=== PATIENT | female | born 1935 | race Caucasian/White ===

== ENCOUNTER 2016-08-31 12:08 | Emergency (ER) | payer MEDICARE, OTHER ==
--- NOTE | 2016-08-31 12:53 | ER Document Report ---
ED Fall - General Chief Complaint: Fall Injury Stated Complaint: FALL;HIP PAIN Information source: Emergency Med Personnel Notes: This is a 81-year-old female that presents today with a fall. She is from [facility] ([facility]. History is unobtainable due to underlying dementia. She is at her baseline. History obtained from patient's daughter. She states that nursing staff at the home called her at 1115 this morning and stated that patient was walking down the [address] and suddenly fell. She landed on her left hip. There was no loss of consciousness. TRAVEL OUTSIDE OF THE [place] IN LAST 30 DAYS: No - Related data Allergies/Adverse Reactions: codeine [Codeine] Allergy (Verified 01/25/15 03:16) diazepam [From Valium] Allergy (Verified 01/25/15 03:16) hydrocodone [Hydrocodone] Allergy (Verified 01/25/15 03:16) hydromorphone HCl [From Dilaudid] Allergy (Verified 01/25/15 03:16) meperidine HCl [From Demerol] Allergy (Verified 01/25/15 03:16) morphine [Morphine] Allergy (Verified 01/25/15 03:16) oxycodone [Oxycodone] Allergy (Verified 01/25/15 03:16) Penicillins Allergy (Verified 01/25/15 03:16) promethazine HCl [From Phenergan] Allergy (Verified 01/25/15 03:16) Sulfa (Sulfonamide Antibiotics) Allergy (Verified 01/25/15 03:16) Past Medical History - General Information source: Patient, Emergency Med Personnel - Social History Smoking Status: Never Smoker Chew tobacco use (# tins/day): No Frequency of alcohol use: None Drug Abuse: None Family History: Reviewed & Not Pertinent Patient has suicidal ideation: No Patient has homicidal ideation: No - Past Medical History Cardiac Medical History: Reports: Hx Hypertension Pulmonary Medical History: Reports: Hx COPD Endocrine Medical History: Reports: Hx Diabetes Mellitus Type 2 GI Medical History: Reports: Hx Gastroesophageal Reflux Disease Psychiatric Medical History: 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 Past Surgical History: Reports: Hx Section - Immunizations Hx Diphtheria, Pertussis, Tetanus Vaccination: Yes Review of Systems - Review of Systems Notes: Review of systems unobtainable from underlying dementia. She is at baseline. Physical Exam - Vital signs Vitals: Temp Pulse Resp BP Pulse Ox 98.0 F 52 L 13 100/60 96 08/31/16 12:32 08/31/16 12:32 08/31/16 12:32 08/31/16 12:32 08/31/16 12:32 - Respiratory Respiratory status: No respiratory distress Breath sounds: Normal - Cardiovascular Rhythm: Regular Heart sounds: Normal auscultation - Abdominal Inspection: Normal Distension: No distension Bowel sounds: Normal Organomegaly: No organomegaly - Extremities General upper extremity: Normal inspection General lower extremity: Normal inspection - Skin Skin Temperature: Warm Skin Moisture: Dry Skin Color: Normal Irregularity with: negative: Swelling - No obvious deformities or swelling. Course - Re-evaluation Re-evalutation: 08/31/16 15:25 Patient's daughter at bedside stated that she will often fake injuries in order to get pain medicines. CT imaging of head and neck and xray imaging of the patients hip was shared with the patient's daughter. She was given multiple opportunities to ask questions. She agreed to follow up with primary care physician as soon as possible. Patient has a pulse of 66 on monitor respiratory rate of 18. She is sleeping. Vital signs are stable. - Vital Signs Vital signs: Temp Pulse Resp BP Pulse Ox 98.0 F 64 14 145/80 H 98 08/31/16 12:46 08/31/16 16:35 08/31/16 16:35 08/31/16 16:35 08/31/16 16:35 Discharge - Discharge Clinical Impression: Fall Qualifiers: Encounter type: initial encounter Qualified Code(s): W19.XXXA - Unspecified fall, initial encounter Condition: Stable Disposition: HOME, SELF-CARE Additional Instructions: Return to the emergency department if symptoms worsen. Follow-up with primary care physician. Referrals: DONNA LOPEZ MD [Primary Care Provider] - Follow up as needed
[2016-08-31 16:35] VITALS: BP 145/80
== END 2016-08-31 16:35 | disposition home or self-care (01) ==
LOC: ER 12:08
DX: Z04.3 Encounter for examination and observation following other accident (principal); G30.9 Alzheimer's disease, unspecified; F02.80 Dementia in other diseases classified elsewhere, unspecified severity, without behavioral disturbance, psychotic disturbance, mood disturbance, and anxiety; W18.30XA Fall on same level, unspecified, initial encounter; Y92.128 Other place in nursing home as the place of occurrence of the external cause; I10 Essential (primary) hypertension; J44.9 Chronic obstructive pulmonary disease, unspecified; E11.9 Type 2 diabetes mellitus without complications; Z88.6 Allergy status to analgesic agent; Z88.0 Allergy status to penicillin; Z88.2 Allergy status to sulfonamides
CPT/HCPCS: 70450; 72125; 73522; 99284

== ENCOUNTER 2016-09-05 06:57 | Emergency (ER) | payer MEDICARE, OTHER ==
--- NOTE | 2016-09-05 07:49 | ER Document Report ---
HPI - HPI Patient complains to provider of: bruised left knee Onset: Other - unkown Quality of pain: No pain Pain Level: 0 Context: 81 yo alzheimer pt from [facility] sent because the caregiver noticed a left lateral knee bruise this am. They do not know how it happened. Her daughter Neelima called and said that it occurred when she fell and was seen in the ED a few days ago. No xray of the area was done at that time. Associated Symptoms: None Exacerbated by: Denies Relieved by: Denies Similar symptoms previously: Yes - according to Neelima Recently seen / treated by doctor: Yes - ROS ROS Unobtainable: Yes ROS unobtainable due to patient's medical condition - DERM Skin Color: Normal, Other Skin Problems: Bruise Past Medical History - General Information source: Relative - daughter and [facility] staff report to EMS Last Menstrual Period: n/a - Social History Smoking Status: Former Smoker Cigarette use (# per day): No Chew tobacco use (# tins/day): No Frequency of alcohol use: None Drug Abuse: None Lives with: Residential - [facility] Family History: Reviewed & Not Pertinent - Past Medical History Cardiac Medical History: Reports: Hx Hypertension Pulmonary Medical History: Reports: Hx COPD Endocrine Medical History: Reports: Hx Diabetes Mellitus Type 2 GI Medical History: Reports: Hx Gastroesophageal Reflux Disease Psychiatric Medical History: 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 Past Surgical History: Reports: Hx Section - Immunizations Hx Diphtheria, Pertussis, Tetanus Vaccination: Yes Vertical Provider Document - CONSTITUTIONAL Agree With Documented VS: Yes Exam Limitations: No Limitations General Appearance: No Apparent Distress - INFECTION CONTROL TRAVEL OUTSIDE OF THE [place] IN LAST 30 DAYS: No - HEENT HEENT: Atraumatic, Normocephalic - NECK Neck: Supple - RESPIRATORY Respiratory: Breath Sounds Normal, No Respiratory Distress O2 Sat by Pulse Oximetry: 97 - CARDIOVASCULAR Cardiovascular: Regular Rate, Regular Rhythm - GI/ABDOMEN Gastrointestinal: Abdomen Soft, Abdomen Non-Tender - BACK Back: Normal Inspection - MUSCULOSKELETAL/EXTREMETIES Musculoskeletal/Extremeties: MAEW, FROM, Tender - mild bruise left lateral knee with dependent extension of exxhymnosis - NEURO Level of Consciousness: Awake, Alert - DERM Integumentary: Warm, Dry Course - Vital Signs Vital signs: Temp Pulse Resp BP Pulse Ox 98.4 F 68 14 146/61 H 97 09/05/16 07:09 09/05/16 07:09 09/05/16 07:09 09/05/16 07:09 09/05/16 07:09 Discharge - Discharge Clinical Impression: Contusion of left knee Qualifiers: Encounter type: initial encounter Qualified Code(s): S80.02XA - Contusion of left knee, initial encounter Condition: Good Disposition: SNF Instructions: Contusion ([facility]) Additional Instructions: Return to a [facility] via ambulance Referrals: DNONA LOPEZ MD [Primary Care Provider] - Follow up as needed
[2016-09-05 10:31] VITALS: BP 154/80
== END 2016-09-05 10:22 ==
LOC: ER 06:57
DX: S80.02XA Contusion of left knee, initial encounter (principal); W19.XXXA Unspecified fall, initial encounter; G30.9 Alzheimer's disease, unspecified; F02.80 Dementia in other diseases classified elsewhere, unspecified severity, without behavioral disturbance, psychotic disturbance, mood disturbance, and anxiety; I10 Essential (primary) hypertension; J44.9 Chronic obstructive pulmonary disease, unspecified; E11.9 Type 2 diabetes mellitus without complications; Z87.891 Personal history of nicotine dependence
CPT/HCPCS: 99283

== ENCOUNTER 2016-09-22 09:21 | Inpatient (IN) | payer MEDICARE, OTHER ==
[2016-09-22] MEDS ORDERED: NORMAL SALINE 1000 ML 1,000 ML IV ONE ×2 (09:27→09:51)
[2016-09-22 09:45] LABS: ABSOLUTE EOSINOPHILS # (AUTO) 0.2 10^3/uL (0.0-0.6); ABSOLUTE LYMPHOCYTES (AUTO) 0.8 10^3/uL (0.5-4.7); ABSOLUTE MONOCYTES (AUTO) 0.6 10^3/uL (0.1-1.4); ABSOLUTE NEUT (AUTO) 3.2 10^3/uL (1.7-8.2); BASOPHILS % (AUTO) 0.8 % (0-2); EOSINOPHILS % (AUTO) 4.7 % (0-6); HEMATOCRIT 31.5 % (36.0-47.0); HEMOGLOBIN 10.2 g/dL (12.0-15.5); HGB HCT DIFFERENCE -0.9; LYMPHOCYTES % (AUTO) 16.5 % (13-45); MEAN CORPUSCULAR HEMOGLOBIN 29.4 pg (27.0-33.4); MEAN CORPUSCULAR HGB CONC 32.3 g/dL (32.0-36.0); MEAN CORPUSCULAR VOLUME 91 fl (80-97); MONOCYTES % (AUTO) 13.1 % (3-13); RED BLOOD COUNT 3.46 10^6/uL (3.72-5.28); RED CELL DISTRIBUTION WIDTH 15.6 % (11.5-14.0); SEGMENTED NEUTROPHILS % (AUTO) 64.9 % (42-78); WHITE BLOOD COUNT 4.9 10^3/uL (4.0-10.5)
--- NOTE | 2016-09-22 09:47 | ER Document Report ---
[id number] Information source: Emergency Med Personnel, [facility] Records Cannot obtain history due to: Altered mental status Notes: 81 yr old female presents from [facility] found unresponsive by staff, called ems who noted patient unresponsive, hypoxic, hypothermic, pt placed on 4L nc and brought in for evaluation blood sugar 300. pt is a full code, noted ot have diazepam allergic but given lorezapam around 7am. Pt responds to dafne stimuli, given iv fluid bolus by ems. TRAVEL OUTSIDE OF THE [place] IN LAST 30 DAYS: No - HPI Onset: Just prior to arrival Onset/Duration: Sudden Quality of pain: No pain Severity: Mild Pain Level: Denies Associated symptoms: Slow to respond, Weakness Exacerbated by: Denies Relieved by: Denies Similar symptoms previously: No Recently seen / treated by doctor: Yes - Related Data Allergies/Adverse Reactions: codeine [Codeine] Allergy (Verified 01/25/15 03:16) diazepam [From Valium] Allergy (Verified 01/25/15 03:16) hydrocodone [Hydrocodone] Allergy (Verified 01/25/15 03:16) hydromorphone HCl [From Dilaudid] Allergy (Verified 01/25/15 03:16) meperidine HCl [From Demerol] Allergy (Verified 01/25/15 03:16) morphine [Morphine] Allergy (Verified 01/25/15 03:16) oxycodone [Oxycodone] Allergy (Verified 01/25/15 03:16) Penicillins Allergy (Verified 01/25/15 03:16) promethazine HCl [From Phenergan] Allergy (Verified 01/25/15 03:16) Sulfa (Sulfonamide Antibiotics) Allergy (Verified 01/25/15 03:16) Past Medical History - General Information source: Law Enforcement - Social History Smoking Status: Never Smoker Cigarette use (# per day): No Chew tobacco use (# tins/day): No Smoking Education Provided: No Family History: Reviewed & Not Pertinent Patient has suicidal ideation: No Patient has homicidal ideation: No - Past Medical History Cardiac Medical History: Reports: Hx Hypertension Pulmonary Medical History: Reports: Hx COPD Endocrine Medical History: Reports: Hx Diabetes Mellitus Type 2 GI Medical History: Reports: Hx Gastroesophageal Reflux Disease Psychiatric Medical History: 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 Past Surgical History: Reports: Hx Section - Immunizations Hx Diphtheria, Pertussis, Tetanus Vaccination: Yes Review of Systems - Review of Systems Notes: REVIEW OF SYSTEMS: pt unable ot give any responses, per care facility CONSTITUTIONAL : Denies fever, chills, or sweats. Denies recent illness. EENT: Denies eye, ear, throat, or mouth pain or symptoms. Denies nasal or sinus congestion or discharge. Denies throat, tongue, or mouth swelling or difficulty swallowing. CARDIOVASCULAR: Denies chest pain. Denies palpitations or racing or irregular heart beat. Denies ankle edema. RESPIRATORY: Denies cough, cold, or chest congestion. Denies shortness of breath, difficulty breathing, or wheezing. GASTROINTESTINAL: Denies abdominal pain or distention. Denies nausea, vomiting , or diarrhea. Denies blood in vomitus, stools, or per rectum. Denies black, tarry stools. Denies constipation. GENITOURINARY: Denies difficulty urinating, painful urination, burning, frequency, blood in urine, or discharge. FEMALE GENITOURINARY: Denies vaginal bleeding, heavy or abnormal periods, irregular periods. Denies vaginal discharge or odor. MUSCULOSKELETAL: Denies back or neck pain or stiffness. Denies joint pain or swelling. SKIN: Denies rash, lesions or sores. HEMATOLOGIC : Denies easy bruising or bleeding. LYMPHATIC: Denies swollen, enlarged glands. NEUROLOGICAL: admit to unresponsivness PSYCHIATRIC: Denies anxiety or stress. Denies depression, suicidal ideation, or homicidal ideation. ALL OTHER SYSTEMS REVIEWED AND NEGATIVE. Dictation was performed using [employer] voice recognition software PHYSICAL EXAMINATION: GENERAL: frail thin female , no acute distress, responsive to voice stimuli HEAD: Atraumatic, normocephalic. EYES: Pupils equal round and reactive to light, extraocular movements intact, conjunctiva are normal. ENT: Nares patent, oropharynx clear without exudates. Moist mucous membranes. NECK: Normal range of motion, supple without lymphadenopathy LUNGS: Breath sounds clear to auscultation bilaterally and equal. No wheezes rales or rhonchi. HEART: Regular rate and rhythm without murmurs ABDOMEN: Soft, nontender, nondistended abdomen. No guarding, no rebound. No masses appreciated. Female : deferred Musculoskeletal: pt able to move digits upper extremity, doesnt follow commands for lower extremities NEUROLOGICAL: unable to fully evaluate, gcs 11 SKIN: hypothermic Physical Exam - Vital signs Vitals: Resp Pulse Ox 13 98 09/22/16 09:25 09/22/16 09:25 Course - Re-evaluation Re-evalutation: 09/22/16 09:58 Patient noted to be hypotensive on arrival given fluid boluses blood pressure has improved, she is hypothermic. CT chest x-ray pending 09/22/16 10:50 no signs of infectious process noted, hypotension has improved, will admit to hospitalist - Vital Signs Vital signs: Temp Pulse Resp BP Pulse Ox 94.7 F L 69 14 143/76 H 96 09/22/16 13:42 09/22/16 16:13 09/22/16 16:13 09/22/16 13:42 09/22/16 16:13 - Laboratory Result Diagrams: 09/22/16 09:30 09/22/16 09:30 Laboratory results interpreted by me: 09/22/16 09/22/16 09/22/16 09:30 09:30 09:35 RBC 3.46 L Hgb 10.2 L Hct 31.5 L RDW 15.6 H Monocytes % 13.1 H BUN 30 H Glucose 242 H AST 69 H ALT 81 H Total Protein 5.3 L Albumin 2.8 L Urine Ketones TRACE H Critical Care Note - Critical Care Note Total time excluding time spent on procedures (mins): 55 Comments: 55 minutes of critical care time spent in direct contact evaluating and reevaluating the patient, treating symptoms, reviewing labs and studies and speaking with family and consultants excluding any procedures Discharge - Discharge Clinical Impression: Unresponsiveness Hypotension Qualifiers: Hypotension type: unspecified hypotension type Qualified Code(s): I95.9 - Hypotension, unspecified Hypothermia Qualifiers: Encounter type: initial encounter Qualified Code(s): T68.XXXA - Hypothermia, initial encounter Condition: Serious Disposition: ADMITTED INPATIENT Admitting Provider: Hospitalist Unit Admitted: [facility]
[2016-09-22 09:48] LABS: VENOUS BLOOD BASE EXCESS 2.6 mmol/L; VENOUS BLOOD HCO3 28.4 mmol/L (20-32); VENOUS BLOOD PCO2 49.6 mmHg (35-63); VENOUS BLOOD PH 7.38 (7.30-7.42)
[2016-09-22 09:52] LABS: PROTHROMBIN TIME 15.1 SEC (11.4-15.4)
[2016-09-22 10:03] LABS: BLOOD UREA NITROGEN 30 mg/dL (7-20); GLUCOSE 242 mg/dL (75-110)
[2016-09-22 10:04] LABS: ALANINE AMINOTRANSFERASE 81 U/L (9-52); ALBUMIN 2.8 g/dL (3.5-5.0); ALKALINE PHOSPHATASE 80 U/L (38-126); ANION GAP 8 (5-19); ASPARTATE AMINO TRANSFERASE 69 U/L (14-36); BILIRUBIN,TOTAL 0.7 mg/dL (0.2-1.3); CARBON DIOXIDE 28 mmol/L (22-30); CHLORIDE 104 mmol/L (98-107); POTASSIUM 3.9 mmol/L (3.6-5.0); SODIUM 140.3 mmol/L (137-145); TOTAL PROTEIN 5.3 g/dL (6.3-8.2)
[2016-09-22 10:17] LABS: APPEARANCE,URINE CLEAR; BILIRUBIN,URINE NEGATIVE (NEGATIVE); GLUCOSE, URINE NEGATIVE (NEGATIVE); KETONES,URINE TRACE mg/dL (NEGATIVE); LEUKOCYTE ESTERASE,URINE NEGATIVE (NEGATIVE); NITRITE,URINE NEGATIVE (NEGATIVE); PROTEIN,URINE NEGATIVE (NEGATIVE); URINE SPECIFIC GRAVITY 1.011; UROBILINOGEN,URINE NEGATIVE mg/dL (<2.0)
[2016-09-22] MEDS ORDERED: NALOXONE HCL INJ 2 MG/2 ML DISP.SYRIN ONE (11:17)
[2016-09-22] MEDS ORDERED: METHYLPREDNISOLONE INJ 125 MG/2 ML SDV ONE (11:20)
[2016-09-22 11:43] LABS: URINE BARBITURATES SCREEN NEGATIVE; URINE METHADONE SCREEN NEGATIVE; URINE PHENCYCLIDINE SCREEN NEGATIVE
[2016-09-22] MEDS ORDERED: ACETAMINOPHEN 325 MG TABLET PO PRN ×2 (11:47→21:06)
[2016-09-22] MEDS ORDERED: ONDANSETRON 4 MG TAB.RAPDIS PO PRN (11:47)
[2016-09-22] MEDS ORDERED: ALBUTEROL SULFATE 0.083% NEB 2.5 MG/3 ML AMPUL NEB PRN (11:47)
[2016-09-22] MEDS ORDERED: ONDANSETRON HCL INJ/PF 4 MG/2 ML SDV IV PRN (11:47)
[2016-09-22] MEDS ORDERED: INSULIN REG, HUMAN 100 UNIT/ML 3 ML VIAL (PYX) SUBCUT PRN (11:56)
[2016-09-22] MEDS ORDERED: DEXTROSE 40% GEL 15 GM TUBE PO PRN ×2 (11:56)
[2016-09-22] MEDS ORDERED: GLUCAGON,HUMAN RECOMB 1 MG INJ IM PRN (11:56)
[2016-09-22] MEDS ORDERED: INSULIN LISPRO 100 UNIT/ML 3 ML VIAL SUBCUT PRN (11:56)
[2016-09-22] MEDS ORDERED: DEXTROSE 50%-WATER 25 GM/50 ML DISP.SYRIN IV PRN ×2 (11:56)
--- NOTE | 2016-09-22 12:33 | PDOC H&P ---
History of Present Illness Admission Date/PCP: DONNA LOPEZ MD Patient complains of: Unresponsive and hypotension History of Present Illness: AVIVA VASQUEZ is a 81 year old female with dementia who lives at the [facility] facility. She woke up this morning her usual state of health and at 7 AM was given her medications. At 9 PM EMS was called because the patient was unresponsive and was found to be hypotensive and hypoxic. Patient's blood pressures were in the 60s initially and she was given IV fluids and had improvement her blood pressures and is normal range. She was given oxygen and her hypoxia also improved. The patient is demented and is unable to give any history. History is obtained from the emergency room physician as well as the paper chart that she came with from her facility. The patient is listed as being allergic to multiple narcotic medications and given her dementia was concerned about the possibility of her inadvertently taking some of his medications and she was given 2 mg of Narcan and she had a slight improvement in her mental status. Patient does take Ativan daily but has been on this for some time. The patient has not had any fevers or chills but the patient is unable to give any history because of her mental status. Her primary care is Dr. Markie Adame who I have called and left a message to discuss the case with when he is available. The patient when asked did complain of some lower abdominal pain in the suprapubic area. Past Medical History Cardiac Medical History: Reports: Hypertension Pulmonary Medical History: Reports: Chronic Obstructive Pulmonary Disease (COPD) Neurological Medical History: Reports: Other - Parkinson's disease Endocrine Medical History: Reports: Diabetes Mellitus Type 2 Renal/ Medical History: Reports: None Malignancy Medical History: Reports: None GI Medical History: Reports: Gastroesophageal Reflux Disease Skin Medical History: Reports: None Psychiatric Medical History: Reports: Dementia - with psychosis Traumatic Medical History: Reports: None Hematology: Reports: None Infectious Medical History: Reports: None Past Surgical History Past Surgical History: Reports: Section Social History Information Source: Emergency Med Personnel, Dr. Aguilar, [facility] Records Lives with: Other Smoking Status: Never Smoker Frequency of Alcohol Use: None Hx Recreational Drug Use: No Drugs: None - Advance Directive Resuscitation Status: Full Code Family History Family History: Unable to obtain secondary to patient's dementia Parental Family History Reviewed: No - patient is demented and no family was available at the time of this exam Children Family History Reviewed: No Sibling(s) Family History Reviewed.: No Medication/Allergy Home Medications: Nitrofurantoin/Nitrofuran Mac [Macrobid 100 mg Capsule] 1 tab PO BID #20 capsule 06/19/16 Allergies/Adverse Reactions: codeine [Codeine] Allergy (Verified 01/25/15 03:16) diazepam [From Valium] Allergy (Verified 01/25/15 03:16) hydrocodone [Hydrocodone] Allergy (Verified 01/25/15 03:16) hydromorphone HCl [From Dilaudid] Allergy (Verified 01/25/15 03:16) meperidine HCl [From Demerol] Allergy (Verified 01/25/15 03:16) morphine [Morphine] Allergy (Verified 01/25/15 03:16) oxycodone [Oxycodone] Allergy (Verified 01/25/15 03:16) Penicillins Allergy (Verified 01/25/15 03:16) promethazine HCl [From Phenergan] Allergy (Verified 01/25/15 03:16) Sulfa (Sulfonamide Antibiotics) Allergy (Verified 01/25/15 03:16) Review of Systems ROS unobtainable: Due to mental status Physical Exam Vital Signs: Temp Pulse Resp BP Pulse Ox 93.5 F L 12 134/75 H 97 09/22/16 11:31 09/22/16 11:31 09/22/16 11:31 09/22/16 11:31 Intake & Output 09/21/16 09/22/16 09/23/16 06:59 06:59 06:59 Weight 59 kg General appearance: PRESENT: no acute distress Head exam: PRESENT: atraumatic, normocephalic Eye exam: PRESENT: conjunctiva pink, EOMI. ABSENT: scleral icterus Ear exam: PRESENT: normal external ear exam Mouth exam: PRESENT: moist, tongue midline Neck exam: ABSENT: carotid bruit, JVD, lymphadenopathy, thyromegaly Respiratory exam: PRESENT: clear to auscultation abhijit. ABSENT: rales, rhonchi, wheezes Cardiovascular exam: PRESENT: RRR. ABSENT: diastolic murmur, rubs, systolic murmur Vascular exam: PRESENT: normal capillary refill GI/Abdominal exam: PRESENT: normal bowel sounds, soft, tenderness - Mild suprapubic tenderness but no guarding or rebound.. ABSENT: distended, guarding , mass, organolmegaly, rebound Rectal exam: PRESENT: deferred Extremities exam: ABSENT: calf tenderness, clubbing, pedal edema Neurological exam: PRESENT: other - Patient is demented but is moving all 4 extremity. Psychiatric exam: PRESENT: other - will open her eyes and follow simple commands but will not do anything else Skin exam: PRESENT: dry, intact, warm. ABSENT: cyanosis, rash Results Laboratory Results: 09/22/16 09:30 09/22/16 09:30 09/22/16 09/22/16 09/22/16 09:30 09:30 09:30 WBC 4.9 RBC 3.46 L Hgb 10.2 L Hct 31.5 L MCV 91 MCH 29.4 MCHC 32.3 RDW 15.6 H Plt Count 195 Seg Neutrophils % 64.9 Lymphocytes % 16.5 Monocytes % 13.1 H Eosinophils % 4.7 Basophils % 0.8 Absolute Neutrophils 3.2 Absolute Lymphocytes 0.8 Absolute Monocytes 0.6 Absolute Eosinophils 0.2 Absolute Basophils 0.0 VBG pH VBG pCO2 VBG HCO3 VBG Base Excess Sodium 140.3 Potassium 3.9 Chloride 104 Carbon Dioxide 28 Anion Gap 8 BUN 30 H Creatinine 0.90 Est GFR ( Amer) > 60 Est GFR (Non-Af Amer) > 60 Glucose 242 H Lactic Acid 1.9 Calcium 9.0 Total Bilirubin 0.7 AST 69 H ALT 81 H Alkaline Phosphatase 80 Total Protein 5.3 L Albumin 2.8 L TSH Urine Color Urine Appearance Urine pH Ur Specific [place] Urine Protein Urine Glucose (UA) Urine Ketones Urine Blood Urine Nitrite Ur Leukocyte Esterase Urine WBC (Auto) Urine RBC (Auto) 09/22/16 09/22/16 09/22/16 09:30 09:30 09:35 WBC RBC Hgb Hct MCV MCH MCHC RDW Plt Count Seg Neutrophils % Lymphocytes % Monocytes % Eosinophils % Basophils % Absolute Neutrophils Absolute Lymphocytes Absolute Monocytes Absolute Eosinophils Absolute Basophils VBG pH 7.38 VBG pCO2 49.6 VBG HCO3 28.4 VBG Base Excess 2.6 Sodium Potassium Chloride Carbon Dioxide Anion Gap BUN Creatinine Est GFR ( Amer) Est GFR (Non-Af Amer) Glucose Lactic Acid Calcium Total Bilirubin AST ALT Alkaline Phosphatase Total Protein Albumin TSH 2.49 Urine Color YELLOW Urine Appearance CLEAR Urine pH 5.0 Ur Specific [place] 1.011 Urine Protein NEGATIVE Urine Glucose (UA) NEGATIVE Urine Ketones TRACE H Urine Blood NEGATIVE Urine Nitrite NEGATIVE Ur Leukocyte Esterase NEGATIVE Urine WBC (Auto) 0 Urine RBC (Auto) 0 Impressions: Chest X-Ray 09/22/16 09:27 IMPRESSION: Nothing acute. Head CT 09/22/16 09:28 IMPRESSION: No acute findings Assessment & Plan - Diagnosis (1) Hypotension Is this a current diagnosis for this admission?: YesPlan: The etiology of her hypotension is unclear. The patient when she presented was hypotensive, hypoxic, hypothermic. The patient does not have a white blood cell count has no obvious source of infection. Of concern with this would be early sepsis. Patient has had blood cultures and we'll give IV Levaquin empirically. The possibility this patient inadvertently getting some type of narcotic given the fact that she is out of the demented patients was considered. She got Narcan and had slight improvement. Because of this we will give Solu-Medrol in case she is having allergic reaction. The possibility of adrenal insufficiency also also considered but unlikely is that she's not had any recent steroids. The possibility this representing a pulmonary embolism given the hypotension and hypoxia is considered and a CT angiography is pending at this time. We will continue with IV fluid resuscitation. And we' ll continue the Solu-Medrol and antibiotics empirically for possible sepsis. Patient had a head CT which showed no acute abnormality as the cause of her symptoms.. (2) Diabetes Is this a current diagnosis for this admission?: YesPlan: Patient is not on anything for diabetes yet her blood sugar was elevated today. We'll cover with sliding scale insulin and fingerstick blood sugars. (3) Chronic pain Is this a current diagnosis for this admission?: YesPlan: Patient has listed that she has chronic pain but has multiple necrotic allergies. Her MAR was reviewed and she only takes, for pain there. We'll continue with that. (4) Parkinsons disease Is this a current diagnosis for this admission?: YesPlan: Patient has a history of Parkinson's disease with psychosis along with her dementia. At the facility she was on Zyprexa, trazodone, Ativan. We'll hold all his medications for now until she wakes up. (5) Dementia Is this a current diagnosis for this admission?: YesPlan: Patient has been on Ativan and Zyprexa and we will hold that as per above. - Time Time Spent: Greater than 70 Minutes - Inpatient Certification Medical Necessity: Need For IV Fluids, Need for IV Antibiotics
--- NOTE | 2016-09-22 13:09 | Progress Note ---
Provider Note Provider Note: Discussed with the patient's primary care physician Dr. Markie Adame. He states the patient is a DO NOT RESUSCITATE. We'll honor those wishes.
[2016-09-22 13:57] LABS: CREATINE KINASE MB 1.28 ng/mL (<4.55)
[2016-09-22 14:00] LABS: TROPONIN I < 0.012 ng/mL
[2016-09-22] MEDS: METHYLPREDNISOLONE INJ 40 MG/1 ML SDV IV SCH ×2 (14:00→23:55)
[2016-09-22] MEDS ORDERED: LEVOFLOXACIN 750 MG/D5W RTU 750 MG/150 ML RTUPB IV ONE (14:00)
--- NOTE | 2016-09-22 15:50 | EKG REPORT ---
SEVERITY:- NORMAL ECG - SINUS RHYTHM : Confirmed by: Анна Jeong 22-Sep-2016 15:50:14
[2016-09-22] MEDS: NORMAL SALINE 1000 ML 1,000 ML IV PRN (17:18)
[2016-09-22] MEDS ORDERED: OLANZAPINE 5 MG TAB.RAPDIS PO SCH (22:00)
[2016-09-22] MEDS: OLANZAPINE 5 MG TABLET PO SCH (22:00)
[2016-09-22] MEDS: FAMOTIDINE INJ/PF 20 MG/2 ML SDV IV SCH (23:55)
[2016-09-22] MEDS: LORAZEPAM 1 MG TABLET PO SCH (23:55)
[2016-09-23 01:38] LABS: TROPONIN I < 0.012 ng/mL
[2016-09-23] MEDS ORDERED: LORAZEPAM INJ 2 MG/1 ML VIAL IV ONE (03:30)
[2016-09-23] MEDS ORDERED: DIAZEPAM INJ 10 MG/2 ML DISP.SYRIN IV ONE (04:32)
[2016-09-23] MEDS: METHYLPREDNISOLONE INJ 40 MG/1 ML SDV IV SCH ×2 (06:57→13:04)
[2016-09-23] MEDS: LORAZEPAM 1 MG TABLET PO SCH ×3 (06:58→21:04)
[2016-09-23 07:23] LABS: HEMATOCRIT 39.7 % (36.0-47.0); HGB HCT DIFFERENCE -0.7; MEAN CORPUSCULAR HEMOGLOBIN 29.5 pg (27.0-33.4); MEAN CORPUSCULAR HGB CONC 32.6 g/dL (32.0-36.0); MEAN CORPUSCULAR VOLUME 90 fl (80-97); RED CELL DISTRIBUTION WIDTH 15.7 % (11.5-14.0)
[2016-09-23 07:34] LABS: ANION GAP 13 (5-19); BLOOD UREA NITROGEN 18 mg/dL (7-20); CALCIUM 9.7 mg/dL (8.4-10.2); CARBON DIOXIDE 23 mmol/L (22-30); CHLORIDE 110 mmol/L (98-107); CREATININE RESULT 0.74 mg/dL (0.52-1.25); GLUCOSE 188 mg/dL (75-110); MAGNESIUM 1.8 mg/dL (1.6-2.3); SODIUM 145.6 mmol/L (137-145)
[2016-09-23 08:31] LABS: WHITE BLOOD COUNT 10.8 10^3/uL (4.0-10.5)
[2016-09-23 08:32] LABS: TOTAL CELLS COUNTED 100
[2016-09-23 08:33] LABS: BASOPHILS % (MANUAL) 0 % (0-2); EOSINOPHILS % (MANUAL) 0 % (0-6); LYMPHOCYTES % (MANUAL) 7 % (13-45); RBC MORPHOLOGY COMMENT NORMO-CYTIC/CHROMIC; TOXIC VACUOLATION PRESENT
[2016-09-23] MEDS ORDERED: CETIRIZINE 10 MG TABLET PO SCH (10:00)
[2016-09-23] MEDS ORDERED: CALCIUM POLYCARBOPHIL 625 MG PO SCH (10:00)
[2016-09-23] MEDS ORDERED: LEVOFLOXACIN 750 MG/D5W RTU 750 MG/150 ML RTUPB IV SCH (10:00)
[2016-09-23] MEDS: FAMOTIDINE INJ/PF 20 MG/2 ML SDV IV SCH ×2 (10:13→21:04)
[2016-09-23] MEDS: ASPIRIN 81 MG TABLET, CHEWABLE PO SCH (10:14)
[2016-09-23] MEDS: ENOXAPARIN SODIUM INJ 40 MG/0.4 ML DISP.SYRIN SUBCUT SCH (10:14)
[2016-09-23] MEDS: NORMAL SALINE 1000 ML 1,000 ML IV PRN (10:16)
[2016-09-23] MEDS ORDERED: NORMAL SALINE 1000 ML 1,000 ML IV PRN (13:28)
--- NOTE | 2016-09-23 14:09 | PDOC PROGRESS REPORT ---
Subjective Progress Note for:: 09/23/16 Subjective:: Patient is much better today. Family at bedside. Apparently the patient's psychiatric medications has been titrated in the correction. The patient was placed on Zanaflex as well. She is not on any blood pressure medication. Patient reports some discomfort in the abdomen but CT was negative. No nausea or vomiting reported no chills or fever noted. Physical Exam Vital Signs: Temp Pulse Resp BP Pulse Ox 98.5 F 97 18 174/83 H 97 09/23/16 11:49 09/23/16 13:21 09/23/16 13:21 09/23/16 11:49 09/23/16 11:49 Intake & Output 09/22/16 09/23/16 09/24/16 06:59 06:59 06:59 Intake Total 600 0 Output Total 3300 850 Balance -2700 -850 Weight 59 kg General appearance: PRESENT: no acute distress, cooperative, other - Demented Head exam: PRESENT: normocephalic Eye exam: PRESENT: EOMI Mouth exam: PRESENT: moist, neck supple Neck exam: ABSENT: JVD Respiratory exam: PRESENT: clear to auscultation abhijit. ABSENT: rhonchi, wheezes Cardiovascular exam: PRESENT: RRR. ABSENT: gallop GI/Abdominal exam: PRESENT: hypoactive bowel sounds, soft. ABSENT: distended, tenderness Extremities exam: ABSENT: pedal edema Neurological exam: PRESENT: alert, awake Skin exam: PRESENT: dry, warm. ABSENT: cyanosis Results Laboratory Results: 09/23/16 07:07 09/23/16 07:07 09/23/16 09/23/16 07:07 07:07 WBC 10.8 H D RBC 4.40 Hgb 13.0 D Hct 39.7 MCV 90 MCH 29.5 MCHC 32.6 RDW 15.7 H Plt Count 252 Seg Neutrophils % Not Reportable Lymphocytes % Not Reportable Monocytes % Not Reportable Eosinophils % Not Reportable Basophils % Not Reportable Absolute Neutrophils Not Reportable Absolute Lymphocytes Not Reportable Absolute Monocytes Not Reportable Absolute Eosinophils Not Reportable Absolute Basophils Not Reportable Sodium 145.6 H Potassium 4.0 Chloride 110 H Carbon Dioxide 23 Anion Gap 13 BUN 18 Creatinine 0.74 Est GFR ( Amer) > 60 Est GFR (Non-Af Amer) > 60 Glucose 188 H Calcium 9.7 Magnesium 1.8 09/22/16 09/22/16 09/23/16 13:10 13:10 00:46 Creatine Kinase 24 L 53 CK-MB (CK-2) 1.28 Troponin I < 0.012 09/23/16 00:46 Creatine Kinase CK-MB (CK-2) 1.30 Troponin I < 0.012 Impressions: Abdomen/Pelvis CT 09/22/16 00:00 IMPRESSION: No CT angio evidence of acute pulmonary emboli or thoracic aortic dissection. No acute posttraumatic changes over the chest abdomen or pelvis NORMAL CT OF THE ABDOMEN AND PELVIS WITH ORAL AND INTRAVENOUS CONTRAST. Chest X-Ray 09/22/16 09:27 IMPRESSION: Nothing acute. Head CT 09/22/16 09:28 IMPRESSION: No acute findings Chest/Abdomen CTA 09/22/16 10:54 IMPRESSION: No CT angio evidence of acute pulmonary emboli or thoracic aortic dissection. No acute posttraumatic changes over the chest abdomen or pelvis NORMAL CT OF THE ABDOMEN AND PELVIS WITH ORAL AND INTRAVENOUS CONTRAST. Assessment & Plan - Diagnosis (1) Unresponsive state Is this a current diagnosis for this admission?: Yes (2) Hypotension Qualifiers: Hypotension type: unspecified hypotension type Qualified Code(s): I95.9 - Hypotension, unspecified Is this a current diagnosis for this admission?: Yes (3) Dementia Is this a current diagnosis for this admission?: Yes (4) Diabetes Qualifiers: Diabetes mellitus type: type 2 Diabetes mellitus complication status: with unspecified complications Diabetes mellitus long-term insulin use: without termite exterminator helper use Qualified Code(s): E11.8 - Type 2 diabetes mellitus with unspecified complications Is this a current diagnosis for this admission?: Yes (5) Parkinsons disease Is this a current diagnosis for this admission?: Yes (6) COPD (chronic obstructive pulmonary disease) Qualifiers: COPD type: unspecified COPD Qualified Code(s): J44.9 - Chronic obstructive pulmonary disease, unspecified Is this a current diagnosis for this admission?: Yes (7) GERD (gastroesophageal reflux disease) Qualifiers: Esophagitis presence: without esophagitis Qualified Code(s): K21.9 - Gastro-esophageal reflux disease without esophagitis Is this a current diagnosis for this admission?: Yes - Time Time Spent with patient: 25-34 minutes - Plan Summary Plan Summary: We will discontinue the patient's Solu-Medrol as well as the Zyrtec and Pepcid. Patient's alteration in mental status and hypotension likely secondary to medication. We will discontinue the Zanaflex completely. Patient is now awake and alert and responsive and family at bedside reportedly she is back to baseline. We will discontinue intravenous fluid as blood pressure started to increase. We will continue to monitor. We will check basic metabolic panel in the morning.
[2016-09-23] MEDS: OLANZAPINE 5 MG TABLET PO SCH (21:05)
[2016-09-24] MEDS ORDERED: ENALAPRILAT DIHYDRATE INJ/PF 1.25 MG/1 ML SDV IV PRN (02:21)
[2016-09-24] MEDS: LORAZEPAM 1 MG TABLET PO SCH ×2 (05:36→15:54)
[2016-09-24 07:07] LABS: HEMATOCRIT 37.4 % (36.0-47.0); HEMOGLOBIN 12.4 g/dL (12.0-15.5); HGB HCT DIFFERENCE -0.2; MEAN CORPUSCULAR HEMOGLOBIN 29.8 pg (27.0-33.4); MEAN CORPUSCULAR HGB CONC 33.1 g/dL (32.0-36.0); MEAN CORPUSCULAR VOLUME 90 fl (80-97); RED BLOOD COUNT 4.15 10^6/uL (3.72-5.28); RED CELL DISTRIBUTION WIDTH 15.6 % (11.5-14.0); WHITE BLOOD COUNT 14.6 10^3/uL (4.0-10.5)
[2016-09-24 07:13] LABS: ANION GAP 10 (5-19); BLOOD UREA NITROGEN 20 mg/dL (7-20); CALCIUM 9.5 mg/dL (8.4-10.2); CARBON DIOXIDE 28 mmol/L (22-30); CHLORIDE 107 mmol/L (98-107); CREATININE RESULT 0.76 mg/dL (0.52-1.25); GLUCOSE 116 mg/dL (75-110); POTASSIUM 3.6 mmol/L (3.6-5.0); SODIUM 144.8 mmol/L (137-145)
[2016-09-24] MEDS: ENOXAPARIN SODIUM INJ 40 MG/0.4 ML DISP.SYRIN SUBCUT SCH (09:02)
[2016-09-24] MEDS ORDERED: LEVOFLOXACIN 750 MG/D5W RTU 750 MG/150 ML RTUPB IV SCH (10:00)
[2016-09-24] MEDS: FAMOTIDINE INJ/PF 20 MG/2 ML SDV IV SCH ×2 (11:38→22:29)
[2016-09-24] MEDS: ASPIRIN 81 MG TABLET, CHEWABLE PO SCH (11:38)
--- NOTE | 2016-09-24 11:46 | PDOC PROGRESS REPORT ---
Subjective Progress Note for:: 09/24/16 Subjective:: Reportedly the patient was awake last night, patient has been on restraints, but this morning the patient has been just resting and sleeping. No reported respiratory distress, temperature spikes, nausea or vomiting, nor diarrhea. Physical Exam Vital Signs: Temp Pulse Resp BP Pulse Ox 97.6 F 75 16 160/75 H 98 09/24/16 07:17 09/24/16 07:17 09/24/16 07:17 09/24/16 07:17 09/24/16 07:17 Intake & Output 09/23/16 09/24/16 09/25/16 06:59 06:59 06:59 Intake Total 600 998 Output Total 3300 2650 Balance -2700 -1652 Weight 59 kg 57.6 kg General appearance: PRESENT: no acute distress, other - Resting comfortably Head exam: PRESENT: normocephalic Mouth exam: PRESENT: moist, neck supple Neck exam: ABSENT: JVD Respiratory exam: PRESENT: clear to auscultation abhijit. ABSENT: rhonchi, wheezes Cardiovascular exam: PRESENT: RRR. ABSENT: gallop GI/Abdominal exam: PRESENT: soft. ABSENT: distended, tenderness Extremities exam: ABSENT: pedal edema Skin exam: PRESENT: dry, warm. ABSENT: cyanosis Results Laboratory Results: 09/24/16 06:51 09/24/16 06:51 09/24/16 09/24/16 06:51 06:51 WBC 14.6 H RBC 4.15 Hgb 12.4 Hct 37.4 MCV 90 MCH 29.8 MCHC 33.1 RDW 15.6 H Plt Count 273 Sodium 144.8 Potassium 3.6 Chloride 107 Carbon Dioxide 28 Anion Gap 10 BUN 20 Creatinine 0.76 Est GFR ( Amer) > 60 Est GFR (Non-Af Amer) > 60 Glucose 116 H Calcium 9.5 09/22/16 09/22/16 09/23/16 13:10 13:10 00:46 Creatine Kinase 24 L 53 CK-MB (CK-2) 1.28 Troponin I < 0.012 09/23/16 00:46 Creatine Kinase CK-MB (CK-2) 1.30 Troponin I < 0.012 Impressions: Abdomen/Pelvis CT 09/22/16 00:00 IMPRESSION: No CT angio evidence of acute pulmonary emboli or thoracic aortic dissection. No acute posttraumatic changes over the chest abdomen or pelvis NORMAL CT OF THE ABDOMEN AND PELVIS WITH ORAL AND INTRAVENOUS CONTRAST. Chest X-Ray 09/22/16 09:27 IMPRESSION: Nothing acute. Head CT 09/22/16 09:28 IMPRESSION: No acute findings Chest/Abdomen CTA 09/22/16 10:54 IMPRESSION: No CT angio evidence of acute pulmonary emboli or thoracic aortic dissection. No acute posttraumatic changes over the chest abdomen or pelvis NORMAL CT OF THE ABDOMEN AND PELVIS WITH ORAL AND INTRAVENOUS CONTRAST. Assessment & Plan - Diagnosis (1) Unresponsive state Is this a current diagnosis for this admission?: Yes (2) Hypotension Qualifiers: Hypotension type: unspecified hypotension type Qualified Code(s): I95.9 - Hypotension, unspecified Is this a current diagnosis for this admission?: Yes (3) Dementia Is this a current diagnosis for this admission?: Yes (4) Diabetes Qualifiers: Diabetes mellitus type: type 2 Diabetes mellitus complication status: with unspecified complications Diabetes mellitus senior living insulin use: without terminal worker use Qualified Code(s): E11.8 - Type 2 diabetes mellitus with unspecified complications; Z79.4 - [facility] (current) use of insulin Is this a current diagnosis for this admission?: Yes (5) Parkinsons disease Is this a current diagnosis for this admission?: Yes (6) COPD (chronic obstructive pulmonary disease) Qualifiers: COPD type: unspecified COPD Qualified Code(s): J44.9 - Chronic obstructive pulmonary disease, unspecified Is this a current diagnosis for this admission?: Yes (7) GERD (gastroesophageal reflux disease) Qualifiers: Esophagitis presence: without esophagitis Qualified Code(s): K21.9 - Gastro-esophageal reflux disease without esophagitis Is this a current diagnosis for this admission?: Yes - Time Time Spent with patient: 25-34 minutes - Plan Summary Plan Summary: I will repeat assume the patient's trazodone at bedtime. We will decrease the patient's Ativan dose. We will discontinue restraints. If patient is stable in the morning we will transfer back to the facility. Continue supportive care. We will recheck WBCs in the morning.
[2016-09-24] MEDS: LORAZEPAM 0.5 MG TABLET PO SCH ×2 (15:54→22:39)
[2016-09-24] MEDS ORDERED: TRAZODONE HCL 50 MG TABLET PO SCH (22:00)
[2016-09-24] MEDS: OLANZAPINE 5 MG TABLET PO SCH (22:30)
[2016-09-25] MEDS ORDERED: LORAZEPAM 0.5 MG TABLET PO ONE (02:10)
[2016-09-25] MEDS: ASPIRIN 81 MG TABLET, CHEWABLE PO SCH (09:36)
[2016-09-25] MEDS: LORAZEPAM 0.5 MG TABLET PO SCH ×2 (09:36→13:47)
[2016-09-25] MEDS: FAMOTIDINE INJ/PF 20 MG/2 ML SDV IV SCH (09:36)
[2016-09-25] MEDS: ENOXAPARIN SODIUM INJ 40 MG/0.4 ML DISP.SYRIN SUBCUT SCH (09:36)
[2016-09-25 12:15] VITALS: BP 119/52
--- NOTE | 2016-09-25 12:33 | PDOC DISCHARGE SUMMARY ---
General - Admit/Disc Date/PCP Admission Date/Primary Care Provider: 09/22/16 12:54 DONNA LOPEZ MD Discharge Date: 09/25/16 - Discharge Diagnosis (1) Unresponsive state Is this a current diagnosis for this admission?: Yes (2) Hypotension Is this a current diagnosis for this admission?: Yes (3) Dementia Is this a current diagnosis for this admission?: Yes (4) Diabetes Is this a current diagnosis for this admission?: Yes (5) Parkinsons disease Is this a current diagnosis for this admission?: Yes (6) COPD (chronic obstructive pulmonary disease) Is this a current diagnosis for this admission?: Yes (7) GERD (gastroesophageal reflux disease) Is this a current diagnosis for this admission?: Yes - Additional Information Resuscitation Status: Do Not Resuscitate Discharge Diet: Diabetic - no concentrated sweets Discharge Activity: Activity As Tolerated, Balance Activity w/Rest Home Medications: Acetaminophen [Tylenol 325 mg Tablet] 650 mg PO Q6HP PRN 09/22/16 Ammonium Lactate [Mellisa-Hydrolac] 1 applic TOP DAILY 09/22/16 Aspirin [Aspirin 81 mg Chewable Tablet] 81 mg PO DAILY 09/22/16 Calcium Polycarbophil [Fiber Lax 625 mg Tablet] 625 mg PO BID 09/22/16 Ergocalciferol (Vitamin D2) [Vitamin D2] 50,000 units PO ASDIR PRN 09/22/16 Loperamide HCl [Imodium A-D] 2 mg PO ASDIR PRN 09/22/16 Multivit-Min/FA/Lycopene/Lut [Certavite Sr-Antioxidant Tab] 1 tab PO DAILY 09/22 Olanzapine [Zyprexa] 20 mg PO QHS 09/22/16 Ondansetron HCl [Zofran 4 mg Tablet] 4 mg PO Q6HP PRN 09/22/16 Oxybutynin Chloride [Ditropan Xl] 5 mg PO DAILY 09/22/16 Trazodone HCl [Desyrel 50 mg Tablet] 50 mg PO QHS 09/22/16 Lorazepam [Ativan 0.5 mg Tablet] 0.5 mg PO Q8 #45 tablet 09/25/16 Ziprasidone HCl [Geodon 20 mg Capsule] 20 mg PO BID PRN 09/25/16 History of Present Illness Patient complains of: Altered mental status History of Present Illness: AVIVA VASQUEZ is a 81 year old female, with history of dementia and resides in an assisted living Alzheimer's unit was brought to the hospital for altered mental status. The ambulance was called and the patient was found to be hypoxic and hypotensive. The patient was placed on oxygen supplementation and intravenous fluid and was brought to the hospital for management. In the emergency room. The patient was continued on intravenous fluid resuscitation and blood pressure is improved. She was tried on Narcan and her mental status improved somehow. She was placed on supplemental oxygen and was referred for admission. For details please refer to the history and physical examination performed by the admitting physician. Hospital Course Hospital Course: The patient was admitted to [facility]. The patient was maintained on intravenous fluids. Antibiotic was started intravenously for possible infection. Apparently the patient improved significantly the following day. She did have chest CT which did not reveal any embolism or infiltrate. Chest x-ray likewise did not reveal any acute infiltrate. CT of the abdomen and pelvis reportedly was normal as well and head CT scan showed no acute abnormality reported. Cultures remain negative. Antibiotics were therefore discontinued and the patient remained afebrile all throughout. Zanaflex was discontinued. She was continued on her Zyprexa as well as trazodone and Ativan. The benzodiazepine dose was decreased to half. The patient has been off oxygen upon improvement without desaturation. She was awake at night and sleeps during the day. Initially she was on restraints due to agitation. Apparently the patient had aggressive behavior even from the Alzheimer's unit. Eventually Estrada catheter was discontinued that was initially placed in the emergency room. Likewise intravenous fluids discontinued. And her restraints were discontinued as well. She was eating well while in the hospital. Family was informed and updated about the course of his illness. Her primary care physician Dr. Adame at the Alzheimer's unit was likewise contacted and an update was discussed. She will continue her as needed geodon in case of aggression or agitation. She will continue her lower dose of the benzodiazepine and probably weaned off completely as permitted and just maintain on an as needed basis. The rest of the hospital stay was essentially unremarkable. She was eventually transferred back improve. Her cultures remained negative. Her TSH was normal. No more hypotension after hydration was noted. Physical Exam Vital Signs: Temp Pulse Resp BP Pulse Ox 98.1 F 84 16 119/52 L 94 09/25/16 10:45 09/25/16 10:45 09/25/16 10:45 09/25/16 10:45 09/25/16 10:45 Intake & Output 09/24/16 09/25/16 09/26/16 06:59 06:59 06:59 Intake Total 998 185 Output Total 2650 2150 Balance -1651 Weight 57.6 kg 55.5 kg General appearance: PRESENT: no acute distress, cooperative Head exam: PRESENT: normocephalic Eye exam: PRESENT: EOMI Mouth exam: PRESENT: moist, neck supple Neck exam: ABSENT: JVD Respiratory exam: PRESENT: clear to auscultation abhijit, unlabored. ABSENT: rhonchi, wheezes Cardiovascular exam: PRESENT: RRR GI/Abdominal exam: PRESENT: hypoactive bowel sounds, soft. ABSENT: distended, tenderness Extremities exam: PRESENT: other - Trace lower extremity edema Neurological exam: PRESENT: alert, awake Psychiatric exam: ABSENT: agitated Focused psych exam: ABSENT: restlessness Skin exam: PRESENT: dry, warm. ABSENT: cyanosis Results Laboratory Results: 09/24/16 06:51 09/24/16 06:51 09/22/16 09/22/16 09/23/16 13:10 13:10 00:46 Creatine Kinase 24 L 53 CK-MB (CK-2) 1.28 Troponin I < 0.012 09/23/16 00:46 Creatine Kinase CK-MB (CK-2) 1.30 Troponin I < 0.012 Impressions: Abdomen/Pelvis CT 09/22/16 00:00 IMPRESSION: No CT angio evidence of acute pulmonary emboli or thoracic aortic dissection. No acute posttraumatic changes over the chest abdomen or pelvis NORMAL CT OF THE ABDOMEN AND PELVIS WITH ORAL AND INTRAVENOUS CONTRAST. Chest X-Ray 09/22/16 09:27 IMPRESSION: Nothing acute. Head CT 09/22/16 09:28 IMPRESSION: No acute findings Chest/Abdomen CTA 09/22/16 10:54 IMPRESSION: No CT angio evidence of acute pulmonary emboli or thoracic aortic dissection. No acute posttraumatic changes over the chest abdomen or pelvis NORMAL CT OF THE ABDOMEN AND PELVIS WITH ORAL AND INTRAVENOUS CONTRAST. Qualifiers PATEINT BEING DISCHARGED WITH ANY OF THE FOLLOWING DIAGNOSIS?: No Plan Discharge Plan: Follow-up with her primary care physician in 5-7 days. Time Spent: Less than 30 Minutes
[2016-09-25] MEDS ORDERED: PSYLLIUM SEED-SF 5.85 GM PACKET PO SCH ×2 (18:00)
== END 2016-09-25 20:10 | disposition home health service (06) | DRG 315 ==
LOC: ER 09:21 → EH 12:54 → 3S 09-23 00:30
PROVIDERS: ADMIT Internal Medicine; ATTEND Internal Medicine
DX: I95.9 Hypotension, unspecified (principal); F02.81 Dementia in other diseases classified elsewhere, unspecified severity, with behavioral disturbance; Z66 Do not resuscitate; G20 Parkinson's disease; G30.9 Alzheimer's disease, unspecified; R09.02 Hypoxemia; R68.0 Hypothermia, not associated with low environmental temperature; E11.8 Type 2 diabetes mellitus with unspecified complications; I10 Essential (primary) hypertension; J44.9 Chronic obstructive pulmonary disease, unspecified; K21.9 Gastro-esophageal reflux disease without esophagitis; Z88.5 Allergy status to narcotic agent; Z88.0 Allergy status to penicillin; Z88.2 Allergy status to sulfonamides; Z88.8 Allergy status to other drugs, medicaments and biological substances
CPT/HCPCS: 36415; 51702; 70450; 71010; 71275; 74177; 80048; 80053; 80307; 81001; 82550; 82553; 82803; 82962; 83605; 83735; 84443; 84484; 85025; 85027; 85610; 87040; 87086; 93005; 93010; 96361; 96374; 96375; 99291; J1650; J1815; J1956; J2060; J2310; J2920; J2930; J3360; J3490; J7030; S0028

== ENCOUNTER 2016-10-09 22:29 | Emergency (ER) | payer MEDICARE, OTHER ==
--- NOTE | 2016-10-09 22:43 | ER Document Report ---
Addendum entered and electronically signed by RANDA VASQUES NP 10/10/16 08:37 : Course - Re-evaluation Re-evalutation: 10/10/16 08:33 [facility] called regarding pts cipro prescription and current zaniflex prescription- she has a potential for hypotension dizziness and sedation. Consult Dr. Pino, prescription changed to Keflex 250 mg 4 times a day dispense 20. Urine still in lab, culture ordered. - Vital Signs Vital signs: Temp Pulse Resp BP Pulse Ox 97.9 F 76 16 110/82 97 10/10/16 03:32 10/10/16 03:32 10/10/16 03:32 10/10/16 03:32 10/10/16 03:32 - Laboratory Result Diagrams: 10/10/16 01:04 10/10/16 01:04 Laboratory results interpreted by me: 10/10/16 10/10/16 10/10/16 00:28 01:04 01:04 RDW 15.8 H Monocytes % 13.3 H Eosinophils % 8.0 H Carbon Dioxide 32 H BUN 27 H Glucose 120 H AST 65 H ALT 75 H Albumin 3.3 L Urine Glucose (UA) 50 H Urine Nitrite POSITIVE H Original Note: ED Fall - General Stated Complaint: FALL,NECK AND HIP PAIN Time seen by provider: 22:40 Notes: Patient is a 81-year-old female that comes emergency department for chief complaint of a fall, patient lives at assisted living, comes by EMS. Patient was witnessed to be standing and fell backwards, she reportedly hit her head on the ground, she complains of pain in her neck and her side on the left. Patient is not on a blood thinner, takes aspirin. Patient states she is not sure why she fell, she states she thinks she became dizzy. Patient oriented to person and place, disoriented to events, EMS reports that they questioned and this is patient's baseline. TRAVEL OUTSIDE OF THE [place] IN LAST 30 DAYS: No - Related data Allergies/Adverse Reactions: codeine [Codeine] Allergy (Verified 01/25/15 03:16) diazepam [From Valium] Allergy (Verified 09/25/16 02:19) hydrocodone [Hydrocodone] Allergy (Verified 01/25/15 03:16) hydromorphone HCl [From Dilaudid] Allergy (Verified 01/25/15 03:16) meperidine HCl [From Demerol] Allergy (Verified 01/25/15 03:16) morphine [Morphine] Allergy (Verified 01/25/15 03:16) oxycodone [Oxycodone] Allergy (Verified 01/25/15 03:16) Penicillins Allergy (Verified 01/25/15 03:16) promethazine HCl [From Phenergan] Allergy (Verified 01/25/15 03:16) Sulfa (Sulfonamide Antibiotics) Allergy (Verified 01/25/15 03:16) Past Medical History - General Information source: Patient - Social History Smoking Status: Never Smoker Frequency of alcohol use: None Drug Abuse: None Lives with: Family Family History: Reviewed & Not Pertinent - Past Medical History Cardiac Medical History: Reports: Hx Hypertension Pulmonary Medical History: Reports: Hx COPD Endocrine Medical History: Reports: Hx Diabetes Mellitus Type 2 GI Medical History: Reports: Hx Gastroesophageal Reflux Disease Psychiatric Medical History: 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 Past Surgical History: Reports: Hx Section - Immunizations Hx Diphtheria, Pertussis, Tetanus Vaccination: Yes Review of Systems - Review of Systems Constitutional: No symptoms reported EENT: No symptoms reported Cardiovascular: No symptoms reported Respiratory: No symptoms reported Gastrointestinal: No symptoms reported Genitourinary: No symptoms reported Female Genitourinary: No symptoms reported Musculoskeletal: See HPI Skin: No symptoms reported Hematologic/Lymphatic: No symptoms reported Neurological/Psychological: See HPI Physical Exam - Vital signs Vitals: Temp Pulse Resp BP Pulse Ox 98.1 F 59 L 14 104/55 L 94 10/09/16 22:46 10/09/16 22:46 10/09/16 22:46 10/09/16 22:46 10/09/16 22:46 Interpretation: Normal - General General appearance: Appears well, Alert In distress: None - HEENT Head: Normocephalic, Atraumatic - No signs of injury noted over the head or neck Eyes: Normal Conjunctiva: Normal Extraocular movements intact: Yes Eyelashes: Normal Pupils: PERRL Mouth/Lips: Normal Mucous membranes: Normal Pharynx: Normal Neck: Normal - Respiratory Respiratory status: No respiratory distress Chest status: Tender - Patient complains of very mild tenderness in the midaxillary region of the left mid chest wall, no ecchymosis, swelling, deformity, no other abnormalities noted Breath sounds: Normal Chest palpation: Normal - Cardiovascular Rhythm: Regular. No: Tachycardia Heart sounds: Normal auscultation, S1 appreciated, S2 appreciated Murmur: No - Abdominal Inspection: Normal Distension: No distension Bowel sounds: Normal Tenderness: Nontender. No: Tender, Guarding Organomegaly: No organomegaly - Back Back: Normal, Nontender. No: Tender - Extremities General upper extremity: Normal inspection, Nontender, Normal ROM, Normal strength General lower extremity: Other - Patient complains with palpation over the femoral bursa area bilaterally, no inguinal pain, no signs of injury noted, full range of motion of lower extremity, normal distal neurovascular exam - Neurological Neuro grossly intact: Yes Cognition: Normal Orientation: AAOx4 Andrzej Coma Scale Eye Opening: Spontaneous Andrzej Coma Scale Verbal: Oriented [place] Coma Scale Motor: Obeys Commands [place] Coma Scale Total: 15 Speech: Normal Motor strength normal: LUE, RUE, LLE, RLE Sensory: Normal - Psychological Associated symptoms: Normal affect, Normal mood - Skin Skin Temperature: Warm Skin Moisture: Dry Skin Color: Normal Course - Re-evaluation Re-evalutation: No hypotension, tachycardia, or fever. Patient is alert and according to EMS she is at baseline. Is responsive and does answer questions, occasionally becomes confused about timing and events. When asked again why she fell, patient did not repeat that she had become dizzy, she simply states she is not sure. This was witnessed, witness told EMS that patient did not have any loss of consciousness or vomiting. Imaging of the head, neck, ribs/chest, and hips show no acute abnormalities, shows incidental nodule in the thyroid, patient given follow-up instructions for this. CBC, chemistry, urinalysis generally unremarkable, urine shows positive nitrites , patient will be treated with Cipro for this, discussed this with patient. I ambulated patient around the room, patient walked without any difficulty, got back into the bed herself. Patient has no neurological deficits on examination. Stable for follow-up with primary care, return precautions placed. Patient states understanding and agreement. - Vital Signs Vital signs: Temp Pulse Resp BP Pulse Ox 97.9 F 76 16 110/82 97 10/10/16 03:32 10/10/16 03:32 10/10/16 03:32 10/10/16 03:32 10/10/16 03:32 - Laboratory Result Diagrams: 10/10/16 01:04 10/10/16 01:04 Laboratory results interpreted by me: 10/10/16 10/10/16 10/10/16 00:28 01:04 01:04 RDW 15.8 H Monocytes % 13.3 H Eosinophils % 8.0 H Carbon Dioxide 32 H BUN 27 H Glucose 120 H AST 65 H ALT 75 H Albumin 3.3 L Urine Glucose (UA) 50 H Urine Nitrite POSITIVE H Discharge - Discharge Clinical Impression: Fall Qualifiers: Encounter type: initial encounter Qualified Code(s): W19.XXXA - Unspecified fall, initial encounter Condition: Stable Disposition: HOME-SNF (ED ONLY) Additional Instructions: Imaging of the head, neck, hips, and side show no new abnormalities. There is a nodule on the thyroid that needs routine followup with an ultrasound. EKG shows no abnormality. Lab workup shows developing urinary tract infection - take antibiotic as directed. Return to the ED for any concerning symptoms - vomiting, headache, passing out, fever, etc. Prescriptions: Ciprofloxacin HCl [Cipro 500 mg Tablet] 500 mg PO BID #10 tablet
[2016-10-10 00:54] LABS: APPEARANCE,URINE SLIGHTLY-CLOUDY; BILIRUBIN,URINE NEGATIVE (NEGATIVE); GLUCOSE, URINE 50 mg/dL (NEGATIVE); KETONES,URINE NEGATIVE (NEGATIVE); LEUKOCYTE ESTERASE,URINE NEGATIVE (NEGATIVE); NITRITE,URINE POSITIVE (NEGATIVE); PROTEIN,URINE NEGATIVE (NEGATIVE); URINE SPECIFIC GRAVITY 1.012; UROBILINOGEN,URINE NEGATIVE mg/dL (<2.0)
[2016-10-10 01:15] LABS: ABSOLUTE EOSINOPHILS # (AUTO) 0.5 10^3/uL (0.0-0.6); ABSOLUTE LYMPHOCYTES (AUTO) 1.2 10^3/uL (0.5-4.7); ABSOLUTE MONOCYTES (AUTO) 0.9 10^3/uL (0.1-1.4); ABSOLUTE NEUT (AUTO) 3.9 10^3/uL (1.7-8.2); BASOPHILS % (AUTO) 0.6 % (0-2); HEMATOCRIT 36.5 % (36.0-47.0); HEMOGLOBIN 12.4 g/dL (12.0-15.5); HGB HCT DIFFERENCE 0.7; LYMPHOCYTES % (AUTO) 18.5 % (13-45); MEAN CORPUSCULAR HEMOGLOBIN 30.4 pg (27.0-33.4); MEAN CORPUSCULAR HGB CONC 33.9 g/dL (32.0-36.0); MEAN CORPUSCULAR VOLUME 90 fl (80-97); MONOCYTES % (AUTO) 13.3 % (3-13); RED BLOOD COUNT 4.07 10^6/uL (3.72-5.28); RED CELL DISTRIBUTION WIDTH 15.8 % (11.5-14.0); SEGMENTED NEUTROPHILS % (AUTO) 59.6 % (42-78); WHITE BLOOD COUNT 6.5 10^3/uL (4.0-10.5)
[2016-10-10 01:42] LABS: CREATINE KINASE MB 1.26 ng/mL (<4.55)
[2016-10-10 01:43] LABS: TROPONIN I < 0.012 ng/mL
[2016-10-10 01:50] LABS: ALANINE AMINOTRANSFERASE 75 U/L (9-52); ALBUMIN 3.3 g/dL (3.5-5.0); ALKALINE PHOSPHATASE 121 U/L (38-126); ANION GAP 8 (5-19); ASPARTATE AMINO TRANSFERASE 65 U/L (14-36); BILIRUBIN,TOTAL 0.6 mg/dL (0.2-1.3); BLOOD UREA NITROGEN 27 mg/dL (7-20); CALCIUM 9.8 mg/dL (8.4-10.2); CARBON DIOXIDE 32 mmol/L (22-30); CHLORIDE 104 mmol/L (98-107); CREATINE KINASE 35 U/L (30-135); CREATININE RESULT 0.91 mg/dL (0.52-1.25); GLUCOSE 120 mg/dL (75-110); SODIUM 143.8 mmol/L (137-145); TOTAL PROTEIN 6.8 g/dL (6.3-8.2)
[2016-10-10] MEDS ORDERED: CIPROFLOXACIN HCL 500 MG TABLET PO ONE (02:31)
[2016-10-10 03:33] VITALS: BP 110/82
--- NOTE | 2016-10-10 08:24 | EKG REPORT ---
SEVERITY:- NORMAL ECG - SINUS RHYTHM : Confirmed by: Iván Mendoza MD 10-Oct-2016 08:23:07
== END 2016-10-10 03:49 ==
LOC: ER 22:29
DX: M54.2 Cervicalgia (principal); M25.552 Pain in left hip; W19.XXXA Unspecified fall, initial encounter
CPT/HCPCS: 93005; 99285; 36415; 87086; 82553; 82550; 85025; 80053; 81001; 84484; 73522; 71101; 70450; 72125; 93010; A9270

== ENCOUNTER 2017-01-10 08:40 | Emergency (ER) | payer MEDICARE, OTHER ==
--- NOTE | 2017-01-10 09:47 | ER Document Report ---
ED General - General Chief Complaint: Fall Stated Complaint: FALL/HAND PAIN Time Seen by Provider: 01/10/17 08:57 TRAVEL OUTSIDE OF THE [place] IN LAST 30 DAYS: No - HPI Patient complains to provider of: possible fall Notes: Patient was brought in today from local [facility] via EMS for possible fall according to EMS patient was found the floor in her room by the tare man earlier in the morning. Patient had had breakfast apparently. Patient was transported to the ER for further evaluation. Patient is not on any blood thinning medications according to [facility] records of her aspirin. Patient also looks to be a DO NOT RESUSCITATE. Patient has a history of dementia. Otherwise patient is alert and verbal however she is confused was looks to be the patient's baseline. Vital signs at this time look to be normal no signs of any fever - Related Data Allergies/Adverse Reactions: codeine [Codeine] Allergy (Verified 01/25/15 03:16) diazepam [From Valium] Allergy (Verified 09/25/16 02:19) hydrocodone [Hydrocodone] Allergy (Verified 01/25/15 03:16) hydromorphone HCl [From Dilaudid] Allergy (Verified 01/25/15 03:16) meperidine HCl [From Demerol] Allergy (Verified 01/25/15 03:16) morphine [Morphine] Allergy (Verified 01/25/15 03:16) oxycodone [Oxycodone] Allergy (Verified 01/25/15 03:16) Penicillins Allergy (Verified 01/25/15 03:16) promethazine HCl [From Phenergan] Allergy (Verified 01/25/15 03:16) Sulfa (Sulfonamide Antibiotics) Allergy (Verified 01/25/15 03:16) Past Medical History - Social History Smoking Status: Unknown if Ever Smoked Frequency of alcohol use: None Drug Abuse: None Family History: Reviewed & Not Pertinent - Past Medical History Cardiac Medical History: Reports: Hx Hypertension Pulmonary Medical History: Reports: Hx COPD Endocrine Medical History: Reports: Hx Diabetes Mellitus Type 2 GI Medical History: Reports: Hx Gastroesophageal Reflux Disease Psychiatric Medical History: 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 Past Surgical History: Reports: Hx Section - Immunizations Hx Diphtheria, Pertussis, Tetanus Vaccination: Yes Review of Systems - Review of Systems Notes: Dementia Physical Exam - Vital signs Vitals: Temp Pulse Resp BP Pulse Ox 97.7 F 91 16 139/60 H 95 01/10/17 08:52 01/10/17 08:52 01/10/17 08:52 01/10/17 08:52 01/10/17 08:52 Interpretation: Normal - General General appearance: Appears well - HEENT Head: Normocephalic, Atraumatic Eyes: Normal Pupils: PERRL - Respiratory Respiratory status: No respiratory distress Chest status: Nontender Breath sounds: Normal Chest palpation: Normal - Cardiovascular Rhythm: Regular Heart sounds: Normal auscultation Murmur: No - Abdominal Inspection: Normal Distension: No distension Bowel sounds: Normal Tenderness: Nontender Organomegaly: No organomegaly - Back Back: Normal, Nontender - Extremities General upper extremity: Nontender, Normal color, Normal ROM, Normal temperature. No: Normal inspection - Bruising to the left hand. According to EMS this has been present since Thursday according to nursing staff at the [facility] General lower extremity: Normal inspection, Nontender, Normal color, Normal ROM , Normal temperature, Normal weight bearing. No: Charlie's sign - Neurological Neuro grossly intact: Yes Cognition: Confused Andrzej Coma Scale Eye Opening: Spontaneous Bishop Coma Scale Verbal: Confused Bishop Coma Scale Motor: Obeys Commands Andrzej Coma Scale Total: 14 Speech: Normal - Psychological Associated symptoms: Other - Confused - Skin Skin Temperature: Warm Skin Moisture: Dry Skin Color: Normal Course - Re-evaluation Re-evalutation: 01/10/17 09:45 Possible fall patient does have a history of dementia patient is a DO NOT RESUSCITATE. At this time will check for any traumatic findings. Vital signs remain stable. Patient is afebrile. If radiographical studies are negative patient will be discharged home - Vital Signs Vital signs: Temp Pulse Resp BP Pulse Ox 97.7 F 95 16 139/60 H 97 01/10/17 08:52 01/10/17 08:52 01/10/17 08:52 01/10/17 08:52 01/10/17 08:52 Discharge - Discharge Clinical Impression: Parkinsons disease Dementia Qualifiers: Dementia type: unspecified type Dementia behavioral disturbance: without behavioral disturbance Qualified Code(s): F03.90 - Unspecified dementia without behavioral disturbance Fall at [facility] Qualifiers: Encounter type: initial encounter Qualified Code(s): W19.XXXA - Unspecified fall, initial encounter Additional Instructions: Patient was seen and evaluated for possible fall. CT of the head neck were performed showing no acute pathology. An x-ray of the left hand was performed due to bruising. Otherwise patient is moving all 4 strep is no signs of any infection or critical etiology at this time. Please make sure the patient was monitored please encourage safe environment for patient ambulate around to prevent falls. Patient to follow-up with primary care physician in 24-48 hours
[2017-01-10 12:34] VITALS: BP 151/72
== END 2017-01-10 12:30 | disposition home health service (06) ==
LOC: ER 08:40
DX: M79.643 Pain in unspecified hand (principal); W19.XXXA Unspecified fall, initial encounter; Y92.129 Unspecified place in nursing home as the place of occurrence of the external cause
CPT/HCPCS: 70450; 72125; 99284

== ENCOUNTER 2017-02-21 01:55 | Emergency (ER) | payer MEDICARE, OTHER ==
[2017-02-21 02:07] VITALS: BP 157/74
--- NOTE | 2017-02-21 02:48 | ER Document Report ---
ED General - General Chief Complaint: Fall Stated Complaint: FALL,NO KNOWN INJURY Time Seen by Provider: 02/21/17 02:06 Cannot obtain history due to: Dementia Notes: Patient is a 81-year-old female presenting from a nursing facility after apparently being found lying on the ground next to her bed. They did not identify any injury but referred the patient to the emergency department for evaluation. The patient herself is exquisitely demented, oriented only to person meaningful details. She denies any acute pain or additional symptoms. TRAVEL OUTSIDE OF THE [place] IN LAST 30 DAYS: No - Related Data Allergies/Adverse Reactions: codeine [Codeine] Allergy (Verified 01/25/15 03:16) diazepam [From Valium] Allergy (Verified 09/25/16 02:19) hydrocodone [Hydrocodone] Allergy (Verified 01/25/15 03:16) hydromorphone HCl [From Dilaudid] Allergy (Verified 01/25/15 03:16) meperidine HCl [From Demerol] Allergy (Verified 01/25/15 03:16) morphine [Morphine] Allergy (Verified 01/25/15 03:16) oxycodone [Oxycodone] Allergy (Verified 01/25/15 03:16) Penicillins Allergy (Verified 01/25/15 03:16) promethazine HCl [From Phenergan] Allergy (Verified 01/25/15 03:16) Sulfa (Sulfonamide Antibiotics) Allergy (Verified 01/25/15 03:16) Past Medical History - General Information source: Emergency Med Personnel Cannot obtain history due to: Dementia - Social History Smoking Status: Unknown if Ever Smoked Drug Abuse: None Lives with: [facility] Family History: Reviewed & Not Pertinent - Past Medical History Cardiac Medical History: Reports: Hx Hypertension Pulmonary Medical History: Reports: Hx COPD Endocrine Medical History: Reports: Hx Diabetes Mellitus Type 2 GI Medical History: Reports: Hx Gastroesophageal Reflux Disease Psychiatric Medical History: 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 Eyes: Negative for visual changes. ENT: Negative for facial injury Cardiovascular: Negative for chest injury. Respiratory: Negative for shortness of breath. Gastrointestinal: Negative for abdominal injury. Genitourinary: Negative for genital injury Musculoskeletal: Negative for back injury. Skin: Negative for laceration/abrasions. Neurological: Negative for head injury. Physical Exam - Vital signs Vitals: Temp Pulse Resp BP Pulse Ox 98.0 F 84 20 157/74 H 91 L 02/21/17 02:04 02/21/17 02:04 02/21/17 02:04 02/21/17 02:04 02/21/17 02:04 Notes: PHYSICAL EXAMINATION: GENERAL: Well-appearing, no acute distress. HEAD: Atraumatic, normocephalic. EYES: Pupils equal round and reactive to light, extraocular movements intact, sclera anicteric, conjunctiva are normal. ENT: nares patent, no oral pharyngeal trauma. No hemotympanum, no James's sign , no raccoon eyes. NECK: No midline cervical spine tenderness. Patient able to move their head to 45 bilaterally without any discomfort. LUNGS: Breath sounds clear to auscultation bilaterally and equal. No wheezes rales or rhonchi. HEART: Regular rate and rhythm without murmurs. CHEST WALL: No ecchymosis over the chest wall. ABDOMEN: Soft, nontender, normoactive bowel sounds. No guarding, no rebound. No abdominal bruising EXTREMITIES: Normal range of motion, no pitting or edema. No long bone deformities. BACK: No midline spinal tenderness, step-offs, or deformities. NEUROLOGICAL: Moves all extremities spontaneously and on command PSYCH: Oriented only to person SKIN: Warm, Dry, normal turgor, no rashes or lesions noted. Course - Re-evaluation Re-evalutation: 02/21/17 02:47 Patient presents after being found lying next to her bed in the snf. Patient has no evidence of trauma anywhere on her body. No evidence of head or neck trauma. She is able to fully rotate her neck 45 bilaterally. No focal neurologic deficits. She has no evidence of extremity injury. No pain with axial loading of the hips bilaterally or with internal or external rotation. She has full range of motion in all joint spaces. There is no evidence of chest or abdominal wall bruising. Back exam is unremarkable. Patient is severely demented and only knows her name but nothing else regarding why she is here in the emergency department. She herself denies any complaints or feelings that she may have an injury anywhere. At this point see no indication for labs or imaging. Will discharge back to facility with return precautions. - Vital Signs Vital signs: Temp Pulse Resp BP Pulse Ox 98.0 F 84 20 157/74 H 91 L 02/21/17 02:04 02/21/17 02:04 02/21/17 02:04 02/21/17 02:04 02/21/17 02:04 Discharge - Discharge Clinical Impression: Fall Qualifiers: Encounter type: initial encounter Qualified Code(s): W19.XXXA - Unspecified fall, initial encounter Condition: Good Disposition: HOME, SELF-CARE Additional Instructions: There is no evidence of injury on today's physical examination. Please return for any additional concerns you may have.
== END 2017-02-21 05:25 ==
LOC: ER 01:55
DX: T14.8 Other injury of unspecified body region (principal); F03.90 Unspecified dementia, unspecified severity, without behavioral disturbance, psychotic disturbance, mood disturbance, and anxiety; W19.XXXA Unspecified fall, initial encounter
CPT/HCPCS: 99284

== ENCOUNTER 2017-06-09 14:11 | Emergency (ER) | payer MEDICARE, OTHER ==
--- NOTE | 2017-06-09 14:24 | ER Document Report ---
ED Fall - General Chief Complaint: Fall Stated Complaint: FALL Time Seen by Provider: 06/09/17 14:20 Notes: The patient is an 82-year-old female, past medical history dementia, Parkinson's , hypertension, presents from [facility] after a witnessed fall where she was sitting on another resident's bed where she hit the back of her head. She is also complaining of neck pain and she was put in a c-collar by EMS prior to arrival. Patient's mental status is at baseline, according to EMS and long term records. She is unable to provide any additional history due to her dementia. TRAVEL OUTSIDE OF THE [place] IN LAST 30 DAYS: No - Related data Allergies/Adverse Reactions: codeine [Codeine] Allergy (Verified 06/09/17 14:21) diazepam [From Valium] Allergy (Verified 06/09/17 14:21) hydrocodone [Hydrocodone] Allergy (Verified 06/09/17 14:21) hydromorphone HCl [From Dilaudid] Allergy (Verified 06/09/17 14:21) meperidine HCl [From Demerol] Allergy (Verified 06/09/17 14:21) morphine [Morphine] Allergy (Verified 06/09/17 14:21) oxycodone [Oxycodone] Allergy (Verified 06/09/17 14:21) Penicillins Allergy (Verified 06/09/17 14:21) promethazine HCl [From Phenergan] Allergy (Verified 06/09/17 14:21) Sulfa (Sulfonamide Antibiotics) Allergy (Verified 06/09/17 14:21) Past Medical History - General Information source: Emergency Med Personnel Cannot obtain history due to: Dementia - Social History Smoking Status: Unknown if Ever Smoked Family History: Reviewed & Not Pertinent - Past Medical History Cardiac Medical History: Reports: Hx Hypertension Pulmonary Medical History: Reports: Hx COPD Endocrine Medical History: Reports: Hx Diabetes Mellitus Type 2 GI Medical History: Reports: Hx Gastroesophageal Reflux Disease Psychiatric Medical History: 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 HEAD: Posterior scalp hematoma EYES: Pupils equal round and reactive to light, extraocular movements intact, sclera anicteric, conjunctiva are normal. ENT: nares patent, oropharynx clear without exudates. Moist mucous membranes. NECK: In C-collar. LUNGS: Breath sounds clear to auscultation bilaterally and equal. No wheezes rales or rhonchi. HEART: Regular rate and rhythm without murmurs ABDOMEN: Soft, nontender, normoactive bowel sounds. No guarding, no rebound. No masses appreciated. EXTREMITIES: Normal range of motion, no pitting or edema. No cyanosis. NEUROLOGICAL: Alert, oriented to person. Moving all 4 extremities. SKIN: Warm, Dry, normal turgor, no rashes or lesions noted. Course - Re-evaluation Re-evalutation: Patient with a witnessed mechanical fall. Head CT and C-spine CT do not show any evidence of acute posttraumatic changes. Will send patient home with contusion instructions. - Vital Signs Vital signs: Temp Pulse Resp BP Pulse Ox 97.9 F 91 18 137/57 H 93 06/09/17 14:17 06/09/17 14:17 06/09/17 14:17 06/09/17 14:17 06/09/17 14:17 - Diagnostic Test Radiology reviewed: Image reviewed, Reports reviewed Radiology results interpreted by me: CT Head: NAD CT C-spine: NAD Discharge - Discharge Clinical Impression: Contusion of head Qualifiers: Encounter type: initial encounter Contusion of head detail: scalp Qualified Code(s): S00.03XA - Contusion of scalp, initial encounter Fall Qualifiers: Encounter type: initial encounter Qualified Code(s): W19.XXXA - Unspecified fall, initial encounter Neck strain Qualifiers: Encounter type: initial encounter Qualified Code(s): S16.1XXA - Strain of muscle, fascia and tendon at neck level, initial encounter Condition: Stable Disposition: HOME, SELF-CARE Additional Instructions: Your CAT scans do not show any evidence of serious injury. Contusion Your injury has resulted in a contusion -- a crushing of the deep tissues. No injury to important structures was detected during the physician's exam. Contusions vary in the amount of pain they cause, and in the length of time required for healing. Typically, the area will become bruised, and will remain painful to touch for two or three weeks. However, most patients are back to working and playing within a few days. After the initial period of rest and cold-packs, your symptoms (together with the doctor's recommendations) will determine how rapidly you can get back to full activity. Usually this means "do what feels okay, but don't do things that hurt." If re-examination was recommended, it's important to follow up as instructed. Call the doctor or return any time if pain increases, if swelling becomes severe, if you develop numbness or weakness in an injured extremity, or if any other alarming symptoms occur.
--- NOTE | 2017-06-09 14:58 | RADIOLOGY REPORT (SQ) ---
EXAM DESCRIPTION: CT HEAD WITHOUT COMPLETED DATE/TIME: 06/09/2017 2:42 pm REASON FOR STUDY: fall COMPARISON: None. TECHNIQUE: Axial images acquired through the brain without intravenous contrast. Images reviewed wi th bone, brain and subdural windows. Images stored on PACS. All CT scanners at this facility use dose modulation, iterative reconstruction, and/or weight based d osing when appropriate to reduce radiation dose to as low as reasonably achievable (ALARA). [facility]: Dose Right [facility]: CareDose [facility]: Dose Right [facility]: Teradose 4D [facility]: Smart M2 Connections RADIATION DOSE: Up-to-date CT equipment and radiation dose reduction techniques were employed. CTDIv ol: 64.6 mGy. DLP: 1163 mGy-cm. mGy. LIMITATIONS: None. FINDINGS: VENTRICLES: Prominent CEREBRUM: No masses. No hemorrhage. No midline shift. No evidence for acute infarction. Normal gra y/white matter differentiation. No areas of low density in the white matter. CEREBELLUM: No masses. No hemorrhage. No alteration of density. No evidence for acute infarction. EXTRAAXIAL SPACES: No fluid collections. No masses. ORBITS AND GLOBE: No intra- or extraconal masses. Normal contour of globe without masses. CALVARIUM: No fracture. PARANASAL SINUSES: No fluid or mucosal thickening. SOFT TISSUES: No mass or hematoma. OTHER: No other significant finding. IMPRESSION: No intracranial pathology. No acute posttraumatic changes. EVIDENCE OF ACUTE STROKE: NO. COMMENT: Quality ID # [id number]: Final reports with documentation of one or more dose reduction techniques (e.g., Automated exposure control, adjustment of the mA and/or kV according to patient size, use of iterative reconstruction technique) TECHNICAL DOCUMENTATION: JOB ID: [id number] 1964 [employer]- All Rights Reserved
--- NOTE | 2017-06-09 15:01 | RADIOLOGY REPORT (SQ) ---
EXAM DESCRIPTION: CT CERVICAL SPINE WITHOUT COMPLETED DATE/TIME: 06/09/2017 2:42 pm REASON FOR STUDY: fall COMPARISON: None. TECHNIQUE: Axial images acquired through the cervical spine without intravenous contrast. Images re viewed with lung, soft tissue and bone windows. Reconstructed coronal and sagittal MPR images review ed. Images stored on PACS. All CT scanners at this facility use dose modulation, iterative reconstruction, and/or weight based d osing when appropriate to reduce radiation dose to as low as reasonably achievable (ALARA). [facility]: Dose Right [facility]: CareDose [facility]: Dose Right [facility]: Teradose 4D [facility]: Smart MYFX RADIATION DOSE: Up-to-date CT equipment and radiation dose reduction techniques were employed. CTDIv ol: 17.6 mGy. DLP: 315 mGy-cm. mGy. LIMITATIONS: None. FINDINGS: ALIGNMENT: Anatomic. MINERALIZATION: Normal. VERTEBRAL BODIES: No fractures or dislocation. DISCS: Moderate to severe disc space narrowing C5-C6 and C6-C7 with associated degenerative spurring. FACETS, LATERAL MASSES, POSTERIOR ELEMENTS: No fractures. No dislocation. No acute findings. HARDWARE: None in the spine. VISUALIZED RIBS: No fractures. LUNG APICES AND SOFT TISSUES: No significant or acute findings. OTHER: No other significant finding. IMPRESSION: Moderate to severe spondylotic changes lower cervical spine unchanged since the previous study of 01/10/2017. No acute posttraumatic changes. TECHNICAL DOCUMENTATION: JOB ID: [id number] Quality ID # [id number]: Final reports with documentation of one or more dose reduction techniques (e.g., Au tomated exposure control, adjustment of the mA and/or kV according to patient size, use of iterative reconstruction technique) 2010 [employer]- All Rights Reserved
[2017-06-09 15:21] VITALS: BP 136/66
== END 2017-06-09 15:36 | disposition home or self-care (01) ==
LOC: ER 14:11
DX: S16.1XXA Strain of muscle, fascia and tendon at neck level, initial encounter (principal); S00.03XA Contusion of scalp, initial encounter; W06.XXXA Fall from bed, initial encounter; Y92.193 Bedroom in other specified residential institution as the place of occurrence of the external cause; M54.2 Cervicalgia; G20 Parkinson's disease; F02.80 Dementia in other diseases classified elsewhere, unspecified severity, without behavioral disturbance, psychotic disturbance, mood disturbance, and anxiety; I10 Essential (primary) hypertension; E11.9 Type 2 diabetes mellitus without complications; J44.9 Chronic obstructive pulmonary disease, unspecified; Z88.5 Allergy status to narcotic agent; Z88.8 Allergy status to other drugs, medicaments and biological substances; Z88.0 Allergy status to penicillin; Z88.2 Allergy status to sulfonamides
CPT/HCPCS: 70450; 72125; 99285

== ENCOUNTER 2017-06-22 16:12 | Emergency (ER) | payer MEDICARE, OTHER ==
--- NOTE | 2017-06-22 16:53 | ER Document Report ---
ED Fall - General Mode of Arrival: Ambulatory Information source: Patient TRAVEL OUTSIDE OF THE U.S. IN LAST 30 DAYS: No <NICHOLE BYNUM - Last Filed: 06/22/17 16:55> <MENDOZA BEAL - Last Filed: 06/22/17 17:39> - General Chief Complaint: Fall Stated Complaint: FALL Time Seen by Provider: 06/22/17 16:24 Notes: Patient is an 82 year old female that presents to the emergency department today with complaints of a fall according to EMS. Patient is a resident at the [facility] and she was found on the floor prior to arrival. Patient has a history of frequent falls. History is limited secondary to the patient's dementia. (NICHOLE BYNUM) - Related data Allergies/Adverse Reactions: codeine [Codeine] Allergy (Verified 06/09/17 14:21) diazepam [From Valium] Allergy (Verified 06/09/17 14:21) hydrocodone [Hydrocodone] Allergy (Verified 06/09/17 14:21) hydromorphone HCl [From Dilaudid] Allergy (Verified 06/09/17 14:21) meperidine HCl [From Demerol] Allergy (Verified 06/09/17 14:21) morphine [Morphine] Allergy (Verified 06/09/17 14:21) oxycodone [Oxycodone] Allergy (Verified 06/09/17 14:21) Penicillins Allergy (Verified 06/09/17 14:21) promethazine HCl [From Phenergan] Allergy (Verified 06/09/17 14:21) Sulfa (Sulfonamide Antibiotics) Allergy (Verified 06/09/17 14:21) Home Medications: Current Home Medications Acetaminophen [Mapap] 325 mg PO Q6 06/22/17 [History] Calcium Polycarbophil [Fiber-Lax] 625 mg PO BID 06/22/17 [History] Cold Cream/Zinc Oxide/Star/Carl [Dermacloud Ointment] 430 gm TP PRN PRN 06/22/17 [History] Guaifenesin [Robafen] 100 mg PO PRN PRN 06/22/17 [History] Loperamide HCl [Imodium 2 mg Capsule] 2 mg PO Q4HP PRN 06/22/17 [History] Lorazepam [Ativan 0.5 mg Tablet] 2 mg PO TID 06/22/17 [History] Magnesium Hydroxide [Milk of Magnesia 30 ml Udcup] 30 ml PO PRN PRN 06/22/17 [ History] Mirabegron [Myrbetriq] 25 mg PO DAILY 06/22/17 [History] Multivit-Min/FA/Lycopen/Lutein [Certavite Sr-Antioxidant Tab] 1 each PO DAILY [History] Ziprasidone HCl 20 mg PO PRN PRN 06/22/17 [History] Past Medical History - General Information source: [facility], [facility] Records Cannot obtain history due to: Dementia - Social History Smoking Status: Former Smoker Frequency of alcohol use: None Drug Abuse: None Lives with: Family Family History: Reviewed & Not Pertinent - Past Medical History Cardiac Medical History: Reports: Hx Hypertension Pulmonary Medical History: Reports: Hx COPD Endocrine Medical History: Reports: Hx Diabetes Mellitus Type 2 GI Medical History: Reports: Hx Gastroesophageal Reflux Disease Psychiatric Medical History: 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 Past Surgical History: Reports: Hx Section - Immunizations Hx Diphtheria, Pertussis, Tetanus Vaccination: Yes <NICHOLE BYNUM - Last Filed: 06/22/17 16:55> Review of Systems - Review of Systems -: Yes ROS unobtainable due to patient's medical condition <NICHOLE BYNUM - Last Filed: 06/22/17 16:55> Physical Exam <NICHOLE BYNUM - Last Filed: 06/22/17 16:55> <MENDOZA BEAL - Last Filed: 06/22/17 17:39> - Notes Notes: Physical Exam: General: Appears at baseline HEENT: Normocephalic. Hematoma over right posterior parietal area. PERRLA. Extraocular movements intact. Oropharynx clear. Neck: In hard c-collar, neck does not appear to be tender. Respiratory: No respiratory distress. Abdominal: Normal Inspection. No distension. Extremities: Moves all four extremities. No knee, hip, wrist, elbow, or shoulder tenderness with palpation. Neurological: Demented at baseline Psychological: unable to assess Skin: 2cm x 2cm skin tear to left dorsal forearm (NICHOLE BYNUM) Course - Diagnostic Test Radiology reviewed: Image reviewed, Reports reviewed - CT cervical spine shows degenerative changes that are chronic. CT of the head shows the right parietal scalp hematoma with no other acute changes. <MENDOZA BEAL - Last Filed: 06/22/17 17:39> - Laboratory Laboratory results interpreted by me: 06/22/17 16:41 Urine Ascorbic Acid 40 H Discharge <NICHOLE BYNUM - Last Filed: 06/22/17 16:55> <MENDOZA BEAL - Last Filed: 06/22/17 17:39> - Discharge Clinical Impression: Fall from standing Qualifiers: Encounter type: initial encounter Qualified Code(s): W19.XXXA - Unspecified fall, initial encounter Hematoma of right parietal scalp Qualifiers: Encounter type: initial encounter Qualified Code(s): S00.03XA - Contusion of scalp, initial encounter Skin tear of left forearm without complication Qualifiers: Encounter type: initial encounter Qualified Code(s): S51.812A - Laceration without foreign body of left forearm, initial encounter Dementia Qualifiers: Dementia type: unspecified type Dementia behavioral disturbance: without behavioral disturbance Qualified Code(s): F03.90 - Unspecified dementia without behavioral disturbance Condition: Stable Disposition: HOME, SELF-CARE Additional Instructions: Scalp Hematoma You have a scalp hematoma. This is a bump caused by blood underneath the scalp. This is a common injury, and usually causes only mild local pain or headache. There is no evidence of a skull fracture or of a brain injury. A scalp hematoma will usually disappear after a few days. Put cold packs on the swollen area for 20-30 minutes every 2-3 hours until the swelling improves. Use acetaminophen or ibuprofen for pain. Avoid aspirin because this may increase bleeding under the scalp. You may have a mild headache for a few days. Call the doctor or return if there is severe headache, confusion, personality changes, vomiting, severe dizziness, or difficulty with balance or coordination. Skin Tear Your wound is a skin tear. These wounds are difficult and sometimes impossible to suture because the skin is so fragile that it may not hold the sutures. The skin condition can be due to aging and sometimes medications. The best care for such skin tears is sometimes to not try to suture them. Rather, it is best to position the skin as closely as possible to its original location and apply a bandage that can remain in place for several days at a time and sometimes these bandages are left in place until the wound has healed. Most skin tears will heal in about two weeks. Because they are so difficult to care for, skin tears should be expected to leave some scarring. Scribe Attestation: 06/22/17 17:38 I personally performed the services described in the documentation, reviewed and edited the documentation which was dictated to the scribe in my presence, and it accurately records my words and actions. (MENDOZA BEAL) Scribe Documentation - Scribe Written by Jennifer:: Jennifer Murillo, 06/22/2017 1705 acting as scribe for :: Amos <NICHOLE BYNUM - Last Filed: 06/22/17 16:55>
[2017-06-22 17:19] LABS: APPEARANCE,URINE CLEAR; BILIRUBIN,URINE NEGATIVE (NEGATIVE); GLUCOSE, URINE NEGATIVE (NEGATIVE); KETONES,URINE NEGATIVE (NEGATIVE); LEUKOCYTE ESTERASE,URINE NEGATIVE (NEGATIVE); NITRITE,URINE NEGATIVE (NEGATIVE); PROTEIN,URINE NEGATIVE (NEGATIVE); URINE SPECIFIC GRAVITY 1.021; UROBILINOGEN,URINE NEGATIVE mg/dL (<2.0)
--- NOTE | 2017-06-22 17:25 | RADIOLOGY REPORT (SQ) ---
EXAM DESCRIPTION: CT HEAD WITHOUT COMPLETED DATE/TIME: 06/22/2017 5:00 pm REASON FOR STUDY: fall, hit right post parietal head COMPARISON: 5 CT brain exams since 08/31/2016, most recently 06/09/2017 TECHNIQUE: Axial images acquired through the brain without intravenous contrast. Images reviewed wi th bone, brain and subdural windows. Images stored on PACS. All CT scanners at this facility use dose modulation, iterative reconstruction, and/or weight based d osing when appropriate to reduce radiation dose to as low as reasonably achievable (ALARA). [facility]: Dose Right [facility]: CareDose [facility]: Dose Right [facility]: Teradose 4D [facility]: Smart [employer] RADIATION DOSE: Up-to-date CT equipment and radiation dose reduction techniques were employed. CTDIv ol: 62.3 mGy. DLP: 1034 mGy-cm. mGy. LIMITATIONS: None. FINDINGS: VENTRICLES: Normal size and contour. CEREBRUM: No masses. No hemorrhage. No midline shift. No evidence for acute infarction. Bifrontal and biparietal chronic appearing small vessel white matter disease. CEREBELLUM: No masses. No hemorrhage. No alteration of density. No evidence for acute infarction. EXTRAAXIAL SPACES: No fluid collections. No masses. ORBITS AND GLOBE: No intra- or extraconal masses. Normal contour of globe without masses. Post bila teral cataract surgery CALVARIUM: No fracture. PARANASAL SINUSES: No fluid or mucosal thickening. SOFT TISSUES: Right parietal scalp hematoma without underlying skull fracture or acute intracranial h emorrhage. OTHER: No other significant finding. IMPRESSION: Right parietal scalp hematoma without underlying skull fracture or acute intracranial ch anges. EVIDENCE OF ACUTE STROKE: NO. COMMENT: Quality ID # [id number]: Final reports with documentation of one or more dose reduction techniques (e.g., Automated exposure control, adjustment of the mA and/or kV according to patient size, use of iterative reconstruction technique) TECHNICAL DOCUMENTATION: JOB ID: [id number] [employer]- All Rights Reserved
--- NOTE | 2017-06-22 17:28 | RADIOLOGY REPORT (SQ) ---
EXAM DESCRIPTION: CT CERVICAL SPINE WITHOUT COMPLETED DATE/TIME: 06/22/2017 5:00 pm REASON FOR STUDY: fall, hit right post parietal head COMPARISON: For prior CT cervical spine exams since 08/31/2016, most recently 06/09/2017 TECHNIQUE: Axial images acquired through the cervical spine without intravenous contrast. Images re viewed with lung, soft tissue and bone windows. Reconstructed coronal and sagittal MPR images review ed. Images stored on PACS. All CT scanners at this facility use dose modulation, iterative reconstruction, and/or weight based d osing when appropriate to reduce radiation dose to as low as reasonably achievable (ALARA). [facility]: Dose Right [facility]: CareDose [facility]: Dose Right [facility]: Teradose 4D [facility]: [employer] RADIATION DOSE: Up-to-date CT equipment and radiation dose reduction techniques were employed. CTDIv ol: 14.5 mGy. DLP: 246 mGy-cm. mGy. LIMITATIONS: None. FINDINGS: ALIGNMENT: Anatomic. MINERALIZATION: Normal. VERTEBRAL BODIES: No fractures or dislocation. DISCS: Multilevel disc space narrowing with osteophytes. Moderate posterior disc bulging at C4-5, C5 -6, and C6-7, similar compared to prior exams. FACETS, LATERAL MASSES, POSTERIOR ELEMENTS: Facet arthropathy. No fractures. No dislocation. No ac [place] findings. HARDWARE: None in the spine. VISUALIZED RIBS: No fractures. LUNG APICES AND SOFT TISSUES: No significant or acute findings. OTHER: No other significant finding. IMPRESSION: CHRONIC DEGENERATIVE CHANGES. NO ACUTE FINDINGS. TECHNICAL DOCUMENTATION: JOB ID: [id number] Quality ID # [id number]: Final reports with documentation of one or more dose reduction techniques (e.g., Au tomated exposure control, adjustment of the mA and/or kV according to patient size, use of iterative reconstruction technique) 2010 [employer]- All Rights Reserved
[2017-06-22 19:06] VITALS: BP 164/90
== END 2017-06-22 19:09 | disposition home or self-care (01) ==
LOC: ER 16:12
DX: S51.812A Laceration without foreign body of left forearm, initial encounter (principal); S00.03XA Contusion of scalp, initial encounter; F03.90 Unspecified dementia, unspecified severity, without behavioral disturbance, psychotic disturbance, mood disturbance, and anxiety; W18.30XA Fall on same level, unspecified, initial encounter; Y92.129 Unspecified place in nursing home as the place of occurrence of the external cause; Z88.6 Allergy status to analgesic agent; Z88.0 Allergy status to penicillin; Z88.2 Allergy status to sulfonamides; I10 Essential (primary) hypertension; J44.9 Chronic obstructive pulmonary disease, unspecified
CPT/HCPCS: 70450; 72125; 81001; 99285

== ENCOUNTER 2017-08-07 22:43 | Emergency (ER) | payer MEDICARE, OTHER ==
[2017-08-07] MEDS ORDERED: ASPIRIN 81 MG TABLET, CHEWABLE PO ONE (22:46)
[2017-08-08 00:44] VITALS: BP 159/78
--- NOTE | 2017-08-08 01:36 | RADIOLOGY REPORT (SQ) ---
EXAM DESCRIPTION: CHEST SINGLE VIEW CLINICAL HISTORY: 82 years, Female, chest pain COMPARISON: None. NUMBER OF VIEWS: 1. FINDINGS: Adequate lung volumes, clear parenchyma, prominent cardiac silhouette, atherosclerosis, and intact bony thorax. IMPRESSION: No acute cardiopulmonary findings. 2011 [employer]- All Rights Reserved
--- NOTE | 2017-08-08 01:40 | ER Document Report ---
ED General - General Chief Complaint: Other Stated Complaint: CHEST PAIN Time Seen by Provider: 08/07/17 23:40 TRAVEL OUTSIDE OF THE [place] IN LAST 30 DAYS: No - HPI Patient complains to provider of: Chest pain Notes: Patient coming in from local [facility] facility for evaluation of chest pain. Warning into the patient's nurse who took report from EMS patient is complaining of left lower rib pain earlier this morning. [facility] states the patient only is combative however she has been quite cooperative tonight therefore they were concerned since the patient for further evaluation. Upon my evaluation patient is confused but alert patient denies any problems does not show any signs of distress I was informed by nursing staff that the family member power of securities attorney did call states that she is visited the patient often states that she is at her baseline. States that the patient used to be combative however now has a new nurse at night had recent adjustment of medications and this is why the patient now is calm. Patient does not complain of any chest pain upon my evaluation. - Related Data Allergies/Adverse Reactions: codeine [Codeine] Allergy (Verified 06/09/17 14:21) diazepam [From Valium] Allergy (Verified 06/09/17 14:21) hydrocodone [Hydrocodone] Allergy (Verified 06/09/17 14:21) hydromorphone HCl [From Dilaudid] Allergy (Verified 06/09/17 14:21) meperidine HCl [From Demerol] Allergy (Verified 06/09/17 14:21) morphine [Morphine] Allergy (Verified 06/09/17 14:21) oxycodone [Oxycodone] Allergy (Verified 06/09/17 14:21) Penicillins Allergy (Verified 06/09/17 14:21) promethazine HCl [From Phenergan] Allergy (Verified 06/09/17 14:21) Sulfa (Sulfonamide Antibiotics) Allergy (Verified 06/09/17 14:21) Past Medical History - Social History Smoking Status: Unknown if Ever Smoked Family History: Reviewed & Not Pertinent Patient has suicidal ideation: No Patient has homicidal ideation: No - Past Medical History Cardiac Medical History: Reports: Hx Hypertension Pulmonary Medical History: Reports: Hx COPD Endocrine Medical History: Reports: Hx Diabetes Mellitus Type 2 Renal/ Medical History: Denies: Hx Peritoneal Dialysis GI Medical History: Reports: Hx Gastroesophageal Reflux Disease Psychiatric Medical History: 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 Past Surgical History: Reports: Hx Section - Immunizations Hx Diphtheria, Pertussis, Tetanus Vaccination: Yes Review of Systems - Review of Systems Notes: Dementia -: Yes ROS unobtainable due to patient's medical condition Physical Exam - Vital signs Vitals: Temp Pulse Resp BP Pulse Ox 98.0 F 84 18 159/78 H 95 08/07/17 23:21 08/07/17 23:21 08/07/17 23:21 08/07/17 23:21 08/07/17 23:21 Interpretation: Normal - General General appearance: Appears well, Alert - HEENT Head: Normocephalic, Atraumatic Eyes: Normal Pupils: PERRL - Respiratory Respiratory status: No respiratory distress Chest status: Tender - Patient states tenderness to palpation of the left rib cage Breath sounds: Normal Chest palpation: Normal - Cardiovascular Rhythm: Regular Heart sounds: Normal auscultation Murmur: No - Abdominal Inspection: Normal Distension: No distension Bowel sounds: Normal Tenderness: Nontender Organomegaly: No organomegaly - Back Back: Normal, Nontender - Extremities General upper extremity: Normal inspection, Nontender, Normal color, Normal ROM , Normal temperature General lower extremity: Normal inspection, Nontender, Normal color, Normal ROM , Normal temperature, Normal weight bearing. No: Charlie's sign - Neurological Neuro grossly intact: Yes Cognition: Confused Motor strength normal: LUE, RUE, LLE, RLE Sensory: Normal - Psychological Associated symptoms: Other - Confused baseline - Skin Skin Temperature: Warm Skin Moisture: Dry Skin Color: Normal Course - Re-evaluation Re-evalutation: 08/08/17 03:08 Patient name laying around the ER redirected to her room multiple times. Lab work does not show any critical pathology EKG chest x-ray also are negative. Patient was discharged back to detention. - Vital Signs Vital signs: Temp Pulse Resp BP Pulse Ox 98.0 F 84 18 159/78 H 95 08/07/17 23:21 08/07/17 23:21 08/07/17 23:21 08/07/17 23:21 08/07/17 23:21 - Laboratory Result Diagrams: 08/08/17 01:12 Laboratory results interpreted by me: 08/08/17 01:12 BUN 21 H Glucose 140 H Discharge - Discharge Clinical Impression: Chest wall pain Chronic pain Qualifiers: Chronic pain type: other chronic pain Qualified Code(s): G89.29 - Other chronic pain Condition: Good Disposition: HOME, SELF-CARE Instructions: Chest Wall Pain ([facility]), Chronic Pain Control ([facility]) Additional Instructions: Patient was seen and evaluated EKG and laboratory studies did not reveal any significant pathology chest x-ray is also negative for needs critical pathology please have the patient follow-up with your primary care physician.
[2017-08-08 01:45] LABS: ANION GAP 13 (5-19); BLOOD UREA NITROGEN 21 mg/dL (7-20); CALCIUM 10.1 mg/dL (8.4-10.2); CARBON DIOXIDE 27 mmol/L (22-30); CHLORIDE 103 mmol/L (98-107); GLUCOSE 140 mg/dL (75-110); POTASSIUM 4.1 mmol/L (3.6-5.0)
--- NOTE | 2017-08-08 05:25 | EKG REPORT ---
SEVERITY:- BORDERLINE ECG - SINUS RHYTHM PROBABLE LEFT ATRIAL ABNORMALITY : Confirmed by: Анна Jeong 08-Aug-2017 05:24:48
== END 2017-08-08 03:44 | disposition home or self-care (01) ==
LOC: ER 22:43
DX: R07.89 Other chest pain (principal); R07.81 Pleurodynia; G89.29 Other chronic pain
CPT/HCPCS: 36415; 71010; 80048; 84484; 93005; 93010; 99285

== ENCOUNTER 2019-02-04 20:52 | Emergency (ER) | payer MEDICARE, OTHER ==
--- NOTE | 2019-02-04 21:45 | ER Document Report ---
ED Fall - General Chief Complaint: Fall Stated Complaint: FAINTING Time Seen by Provider: 02/04/19 21:41 Mode of Arrival: Ambulatory Information source: Relative, Emergency Med Personnel Notes: This is a 83-year-old woman with a history of vascular dementia who was brought into the emergency room after a fall at the shelter. Patient is accompanied by her daughter states that her mental status is baseline at this time. The patient does have a history of vascular dementia and can get aggressive at times. That has not changed. She does walk the halls often. And she is a fall risk and had fallen today. TRAVEL OUTSIDE OF THE [place] IN LAST 30 DAYS: No - HPI Occurred: Just prior to arrival Where: [facility] Context: Lost balance Associated symptoms: denies: Lost consciousness, Dazed/confused Location of injury/pain: Head Quality of pain: No pain Severity: None - Related data Allergies/Adverse Reactions: codeine [Codeine] Allergy (Verified 06/09/17 14:21) diazepam [From Valium] Allergy (Verified 06/09/17 14:21) hydrocodone [Hydrocodone] Allergy (Verified 06/09/17 14:21) hydromorphone HCl [From Dilaudid] Allergy (Verified 06/09/17 14:21) meperidine HCl [From Demerol] Allergy (Verified 06/09/17 14:21) morphine [Morphine] Allergy (Verified 06/09/17 14:21) oxycodone [Oxycodone] Allergy (Verified 06/09/17 14:21) Penicillins Allergy (Verified 06/09/17 14:21) promethazine HCl [From Phenergan] Allergy (Verified 06/09/17 14:21) Sulfa (Sulfonamide Antibiotics) Allergy (Verified 06/09/17 14:21) Past Medical History - General Information source: Relative - Social History Smoking Status: Never Smoker Cigarette use (# per day): No Chew tobacco use (# tins/day): No Frequency of alcohol use: None Drug Abuse: None Lives with: [facility] Family History: Reviewed & Not Pertinent Patient has suicidal ideation: No Patient has homicidal ideation: No - Past Medical History Cardiac Medical History: Reports: Hx Hypertension Pulmonary Medical History: Reports: Hx COPD Endocrine Medical History: Reports: Hx Diabetes Mellitus Type 2 Renal/ Medical History: Denies: Hx Peritoneal Dialysis GI Medical History: Reports: Hx Gastroesophageal Reflux Disease Psychiatric Medical History: 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 Past Surgical History: Reports: Hx Section - Immunizations Hx Diphtheria, Pertussis, Tetanus Vaccination: Yes Review of Systems - Review of Systems Constitutional: denies: Chills, Fever EENT: See HPI Cardiovascular: No symptoms reported Respiratory: No symptoms reported Gastrointestinal: No symptoms reported Genitourinary: No symptoms reported Female Genitourinary: No symptoms reported Musculoskeletal: No symptoms reported Skin: See HPI Hematologic/Lymphatic: No symptoms reported Neurological/Psychological: See HPI Physical Exam - Vital signs Vitals: Temp Pulse Resp BP Pulse Ox 97.9 F 76 16 125/74 93 02/04/19 21:03 02/04/19 21:03 02/04/19 21:03 02/04/19 21:03 02/04/19 21:03 Notes: Physical exam: GENERAL: Patient is alert, at baseline mental status (she does have vascular dementia). HEAD: She does have a right frontal bone contusion. There is a superficial abrasion not requiring suture repair. EYES: Pupils equal round and reactive to light, extraocular movements intact, sclera anicteric, conjunctiva are normal. ENT: TMs normal, nares patent, oropharynx clear without exudates. Moist mucous membranes. NECK: No cervical spine tenderness. Normal range of motion, supple without obvious mass LUNGS: Breath sounds clear to auscultation bilaterally and equal. No wheezes rales or rhonchi. HEART: Regular rate and rhythm without murmurs, rubs or gallops. ABDOMEN: Soft, normoactive bowel sounds. No tenderness to palpation. No guarding, no rebound. No masses appreciated. EXTREMITIES: Pelvis is stable. Range of motion of the hips and lower extremities. Good range of motion of the upper extremities peer, no pitting or edema. No clubbing or cyanosis. NEUROLOGICAL: Patient is moving all extremities. PSYCH: She is calm and smiling SKIN: Abrasion and contusion to the right frontal bone Course - Vital Signs Vital signs: Temp Pulse Resp BP Pulse Ox 97.7 F 71 16 135/66 H 95 02/04/19 23:23 02/04/19 23:23 02/04/19 23:23 02/04/19 23:23 02/04/19 23:23 - Diagnostic Test Radiology reviewed: Image reviewed, Reports reviewed - CT of the head shows no bleed Discharge - Discharge Clinical Impression: Head contusion status post fall Condition: Stable Disposition: HOME, SELF-CARE Additional Instructions: Head CT tonight showed no intracranial bleeding. She was doing fairly well on physical exam. Recommendations: Continue current medicines, fall precautions. Return to the ER for any problems.
--- NOTE | 2019-02-04 22:36 | RADIOLOGY REPORT (SQ) ---
EXAM DESCRIPTION: [facility]: CT HEAD WITHOUT IV CONTRAST CLINICAL HISTORY: 83 years Female; contusion TECHNIQUE: Noncontrast CT head. All CT scans at this facility use dose modulation, iterative reconstruction, and/or weight based dosing when appropriate to reduce radiation dose to as low as reasonably achievable. COMPARISON: 06/22/2017 FINDINGS: Mild atrophy, similar to prior exam. No acute intracranial hemorrhage or mass effect. Ventricles and cisterns are preserved. Visualized portions of paranasal sinuses and mastoids are clear. There is a 0.9 cm thick by 4.5 cm wide right frontal subgaleal hematoma. No associated calvarial fractures. IMPRESSION: 1. No acute intracranial findings. 2. Right frontal scalp injury 3. Mild cerebral atrophy as on prior exam
[2019-02-04 23:24] VITALS: BP 135/66
== END 2019-02-04 23:28 | disposition home or self-care (01) ==
LOC: ER 20:52
DX: S00.83XA Contusion of other part of head, initial encounter (principal); S00.81XA Abrasion of other part of head, initial encounter; W18.30XA Fall on same level, unspecified, initial encounter; Y93.9 Activity, unspecified; Y92.129 Unspecified place in nursing home as the place of occurrence of the external cause; Y99.9 Unspecified external cause status; F01.50 Vascular dementia, unspecified severity, without behavioral disturbance, psychotic disturbance, mood disturbance, and anxiety; I10 Essential (primary) hypertension; J44.9 Chronic obstructive pulmonary disease, unspecified; E11.9 Type 2 diabetes mellitus without complications; K21.9 Gastro-esophageal reflux disease without esophagitis; Z88.8 Allergy status to other drugs, medicaments and biological substances; Z88.0 Allergy status to penicillin; Z88.2 Allergy status to sulfonamides
CPT/HCPCS: 70450; 99285